=== PATIENT | male | born 1980 | race Caucasian/White ===

== ENCOUNTER 2017-11-02 18:32 | Observation (INO) | payer MEDICARE, OTHER ==
[~2017-11-02] VITALS: Ht 172.7 cm; Wt 80.9 kg
[~2017-11-02 18:32] MED LIST: CLIN150C14 PO; CLON2TAB PO; ELVI1TAB3 PO; FENO48TA PO; HYDR-3583 PO; LAMO150T PO; MIRT30TA PO; MOME17I EACH NARE; PRAV20TA2 PO; PROP10TA6 PO; QUET1TAB10 PO; QUET1TAB8 PO; RANI150C PO; SUMA50TA2 PO; VENL100T PO; WALKER WHEELS/F1 MIS
[2017-11-02 18:40] VITALS: BP 113/75; PULSE 85; RESP 16; TEMP 98.6; O2SAT 95
[2017-11-02] MEDS ORDERED: QUET1TAB7 PO (19:42)
[2017-11-02] MEDS ORDERED: LANTUS2P SQ (19:42)
[2017-11-02] MEDS ORDERED: NOVOINJ3 SQ (19:42)
[2017-11-02] MEDS ORDERED: GABA600T PO (19:42)
[2017-11-02] MEDS ORDERED: SODIUM CHLOR 0.9% 1000 ML INJ 1,000 ML IV SCH (19:44)
[2017-11-02] MEDS ORDERED: SODIUM CHLORIDE 0.9% FLUSH 10 ML FLUSH IV FLUSH PRN (19:45)
[2017-11-02] MEDS ORDERED: MORPHINE SULFATE 8 MG/ML INJ IV PUSH ONE (19:45)
[2017-11-02] MEDS ORDERED: ONDANSETRON ODT 4 MG TAB PO ONE (19:45)
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
[2017-11-02 20:06] LABS: AUTOMATED NEUTROPHIL # 4.6 TH/MM3 (1.8-7.7); BASOPHIL # 0.1 TH/MM3 (0-0.2); EOSINOPHIL # 0.1 TH/MM3 (0-0.4); EOSINOPHIL % 1.6 % (0.0-4.0); HEMATOCRIT 44.6 % (39.0-51.0); HEMOGLOBIN 15.9 GM/DL (13.0-17.0); LYMPH % 38.3 % (9.0-44.0); LYMPHOCYTE # 3.3 TH/MM3 (1.0-4.8); MEAN CELL VOLUME 94.5 FL (80.0-100.0); MEAN CORPUSCULAR HEMOGLOBIN 33.8 PG (27.0-34.0); MEAN CORPUSCULAR HGB CONC 35.7 % (32.0-36.0); MEAN PLATELET VOLUME 10.8 FL (7.0-11.0); MONO % 5.6 % (0.0-8.0); MONOCYTE # 0.5 TH/MM3 (0-0.9); NEUT % 53.5 % (16.0-70.0); PLATELET COUNT 176 TH/MM3 (150-450); RED BLOOD COUNT 4.72 MIL/MM3 (4.50-5.90); RED CELL DISTRIBUTION WIDTH 13.4 % (11.6-17.2); WHITE BLOOD COUNT 8.6 TH/MM3 (4.0-11.0)
[2017-11-02 20:28] LABS: ALBUMIN 3.5 GM/DL (3.4-5.0); AST (GOT) 82 U/L (15-37); BICARBONATE 25.6 MEQ/L (21.0-32.0); BLOOD UREA NITROGEN 12 MG/DL (7-18); CALCIUM 9.7 MG/DL (8.5-10.1); CHLORIDE 104 MEQ/L (98-107); CREATININE 0.96 MG/DL (0.60-1.30); GLOMERULAR FILTRATION RATE 89 ML/MIN (>89); GLUCOSE,RANDOM 92 MG/DL (74-106); SODIUM (NA) 140 MEQ/L (136-145)
[2017-11-02 20:29] LABS: ALT (GPT) 88 U/L (12-78)
[2017-11-02 20:32] LABS: ALKALINE PHOSPHATASE 187 U/L (45-117); TOTAL BILIRUBIN ADULT 0.4 MG/DL (0.2-1.0); TOTAL PROTEIN 7.9 GM/DL (6.4-8.2)
[2017-11-02] MEDS ORDERED: GLUCAGON 1 MG/ML VIAL OTHER PRN (21:45)
[2017-11-02] MEDS ORDERED: DEXTROSE 50% IN WATER 50 ML VIAL(D50) IV PUSH PRN (21:45)
[2017-11-02] MEDS ORDERED: LACTULOSE SYRUP 20 GM/30 ML CUP PO PRN (21:45)
[2017-11-02] MEDS ORDERED: SENNOSIDES 8.6 MG TAB PO PRN (21:45)
[2017-11-02] MEDS ORDERED: LORazepam 2 MG/ML VIAL IV PUSH PRN ×4 (21:45)
[2017-11-02] MEDS ORDERED: LORazepam 1 MG TAB PO PRN (21:45)
[2017-11-02] MEDS ORDERED: BISACODYL 10 MG SUPP RECTAL PRN (21:45)
[2017-11-02] MEDS ORDERED: LORazepam 2 MG TAB PO PRN (21:45)
[2017-11-02] MEDS ORDERED: PANTOPRAZOLE SODIUM 40 MG VIAL IV PUSH ONE (21:45)
[2017-11-02] MEDS ORDERED: MORPHINE SULFATE 2 MG/ML SYRINGE IV PUSH PRN (21:45)
[2017-11-02] MEDS ORDERED: HALOPERIDOL LACTATE 5 MG/ML AMP IM PRN (21:45)
[2017-11-02] MEDS ORDERED: ACETAMINOPHEN 325 MG TAB PO PRN (21:45)
[2017-11-02] MEDS ORDERED: MAGNESIUM HYDROXIDE SUSP 30 ML CUP PO PRN (21:45)
[2017-11-02] MEDS ORDERED: FLUMAZENIL 0.5 MG/5 ML VIAL IV PUSH PRN (21:45)
--- NOTE | 2017-11-02 21:45 | HHI.HP ---
[facility] No Primary Care Physician Admission Diagnosis Alcoholic Pancreatitis; Alcohol Intoxication Diagnoses: (1) Pancreatitis Diagnosis: Principal (2) Alcohol abuse Diagnosis: Principal (3) DM (diabetes mellitus) Diagnosis: Principal Travel History International Travel<30 Days: No Contact w/Intl Traveler <30 Da: No Traveled to Known Affected Are: No History of Present Illness This is a 37-year-old male with a PMH of Anxiety, Depression, HIV, DM, Recurrent Pancreatitis, Alcohol Abuse and Tobacco Abuse who presented to the ER with complaints of abdominal pain starting earlier today which he believes is related to recurrent pancreatitis. Patient does admit to drinking on a daily basis. Notes pain is generalized, constant, 9/10, nonradiating, associated with nausea and vomiting. Denies fever, chills or diarrhea. On arrival, BP 113 /75, HR 85, O2 sat 95% on RA, Afebrile. CBC unremarkable. Chemistry essentially unremarkable. LFTs elevated in comparison to previous labs. Lipase 658. S/p Zofran and Morphine 8mg IV in ER w/ minimal improvement, persistent nausea/vomiting and abdominal pain. Review of Systems Except as stated in HPI: all other systems reviewed are Neg ROS: 14 point review of systems otherwise negative. Past Family Social History Past Medical History PMH: Anxiety, Depression, HIV, DM, Recurrent Pancreatitis, Alcohol Abuse and Tobacco Abuse Past Surgical History PAST SURGICAL HISTORY: Appendectomy, Femur Vito Allergies: Coded Allergies: naproxen (Unverified Allergy, Severe, 02/05/17) penicillin G (Unverified Allergy, Severe, 02/05/17) Family History PAST FAMILY HISTORY: Reviewed. No h/o DM or CAD Social History PAST SOCIAL HISTORY: Drinks daily. Smokes 1/2ppd. Negative for drugs. Physical Exam Vital Signs Vital Signs Date Time Temp Pulse Resp B/P (MAP) Pulse Ox O2 Delivery O2 Flow Rate FiO2 11/02/17 19:48 Room Air 11/02/17 18:40 98.6 85 16 113/75 (88) 95 Physical Exam PE: GENERAL: Young white male in moderate distress due to pain, sitting up in bed, tearful. Mother at bedside. HEENT: PERRLA, EOMI. No scleral icterus or conjunctival pallor. No lid lag or facial droop. CARDIOVASCULAR: Regular rate and rhythm. No obvious murmurs to auscultation. No chest tenderness to palpation. RESPIRATORY: No obvious rhonchi or wheezing. Clear to auscultation. Breath sounds equal bilaterally. GASTROINTESTINAL: Abdomen soft, generalized tenderness palpation, nondistended. BS normal. MUSCULOSKELETAL: Extremities without clubbing, cyanosis, or edema. No obvious deformities. NEUROLOGICAL: Awake, alert and oriented x4. No focal neurologic deficits. Moving both upper and lower extremities spontaneously. Laboratory Laboratory Tests Test 11/02/17 19:54 White Blood Count 8.6 Red Blood Count 4.72 Hemoglobin 15.9 Hematocrit 44.6 Mean Corpuscular Volume 94.5 Mean Corpuscular Hemoglobin 33.8 Mean Corpuscular Hemoglobin Concent 35.7 Red Cell Distribution Width 13.4 Platelet Count 176 Mean Platelet Volume 10.8 Neutrophils (%) (Auto) 53.5 Lymphocytes (%) (Auto) 38.3 Monocytes (%) (Auto) 5.6 Eosinophils (%) (Auto) 1.6 Basophils (%) (Auto) 1.0 Neutrophils # (Auto) 4.6 Lymphocytes # (Auto) 3.3 Monocytes # (Auto) 0.5 Eosinophils # (Auto) 0.1 Basophils # (Auto) 0.1 CBC Comment DIFF FINAL Differential Comment Blood Urea Nitrogen 12 Creatinine 0.96 Random Glucose 92 Total Protein 7.9 Albumin 3.5 Calcium Level 9.7 Alkaline Phosphatase 187 Aspartate Amino Transf (AST/SGOT) 82 Alanine Aminotransferase (ALT/SGPT) 88 Total Bilirubin 0.4 Sodium Level 140 Potassium Level 3.4 Chloride Level 104 Carbon Dioxide Level 25.6 Anion Gap 10 Estimat Glomerular Filtration Rate 89 Lipase 658 Ethyl Alcohol Level 160 Result Diagram: 11/02/17195311/02/171953 Caprini VTE Risk Assessment Caprini VTE Risk Assessment: No/Low Risk (score <= 1) Caprini Risk Assessment Model Point Value = 1 Point Value = 2 Point Value = 3 Point Value = 5 Age 41-60 Minor surgery BMI > 25 kg/m2 Swollen legs Varicose veins or History of unexplained or recurrent spontaneous Oral contraceptives or hormone replacement Sepsis (< 1 month) Serious lung disease, including pneumonia (< 1 month) Abnormal pulmonary function Acute myocardial infarction Congestive heart failure (< 1 month) History of inflammatory bowel disease Medical patient at bed rest Age 61-74 Arthroscopic surgery Major open surgery (> 45 min) Laparoscopic surgery (> 45 min) Malignancy Confined to bed (> 72 hours) Immobilizing plaster cast Central venous access Age >= 75 History of VTE Family history of VTE Factor V Leiden Prothrombin [id number] Lupus anticoagulant Anticardiolipin antibodies Elevated serum homocysteine Heparin-induced thrombocytopenia Other congenital or acquired thrombophilia Stroke (< 1 month) Elective arthroplasty Hip, pelvis, or leg fracture Acute spinal cord injury (< 1 month) Prophylaxis Regimen Total Risk Factor Score Risk Level Prophylaxis Regimen 0-1 Low Early ambulation 2 Moderate Order ONE of the following: *Sequential Compression Device (SCD) *Heparin 5000 units SQ BID 3-4 Higher Order ONE of the following medications: *Heparin 5000 units SQ TID *Enoxaparin/Lovenox 40 mg SQ daily (WT < 150 kg, CrCl > 30 mL/min) *Enoxaparin/Lovenox 30 mg SQ daily (WT < 150 kg, CrCl > 10-29 mL/min) *Enoxaparin/Lovenox 30 mg SQ BID (WT < 150 kg, CrCl > 30 mL/min) AND/OR *Sequential Compression Device (SCD) 5 or more Highest Order ONE of the following medications: *Heparin 5000 units SQ TID (Preferred with Epidurals) *Enoxaparin/Lovenox 40 mg SQ daily (WT < 150 kg, CrCl > 30 mL/min) *Enoxaparin/Lovenox 30 mg SQ daily (WT < 150 kg, CrCl > 10-29 mL/min) *Enoxaparin/Lovenox 30 mg SQ BID (WT < 150 kg, CrCl > 30 mL/min) AND *Sequential Compression Device (SCD) Assessment and Plan Problem List: (1) Pancreatitis ICD Code: K85.90 - Acute pancreatitis without necrosis or infection, unspecified Status: Acute (2) Alcohol abuse ICD Code: F10.10 - Alcohol abuse, uncomplicated (3) DM (diabetes mellitus) ICD Code: E11.9 - Type 2 diabetes mellitus without complications Assessment and Plan A/P: 1. Pancreatitis: Alcohol-Induced, Recurrent. Lipase 698, persistent nausea/ vomiting and abdominal pain despite treatment in ER. Admit for Observation, NPO , IVF, Protonix IV x1 now then bid, analgesics/antiemetics as needed. Repeat labs in am. 2. Alcohol Abuse: Drinks daily, heavy, high risk for withdrawal. CIWA, Seizure Precautions, MVT/Thiamine/Folate replacement. Pt counselled on alcohol cessation. 3. DM: Sliding scale w/ Accu-Cheks, restart Insulin tomorrow once taking adequate PO 4. DVT Prophylaxis: SCD/Teds 5. Social work for d/c planning as needed. 6. Case discussed w/ ER physician at length, labs/records/imaging reviewed by me. Problem Qualifiers (1) Pancreatitis: Qualified Codes: K86.0 - Alcohol-induced chronic pancreatitis Lxami Diaz MD November 02, 2017 21:45
[2017-11-02] MEDS ORDERED: MORPHINE SULFATE 4 MG/ML INJ IV PUSH PRN (22:00)
[2017-11-02] MEDS ORDERED: PILL SPLITTER OTHER PRN (22:00)
[2017-11-02 22:40] VITALS: BP 130/77; PULSE 66; RESP 16; TEMP 98.3; O2SAT 98
[2017-11-02] MEDS: MIRTAZAPINE 15 MG TAB PO SCH (22:51)
[2017-11-02] MEDS: THIAMINE HCL 100 MG TAB PO SCH (22:51)
[2017-11-02] MEDS: SODIUM CHLOR 0.9% 1000 ML INJ 1,000 ML IV SCH (22:59)
[2017-11-02] MEDS ORDERED: VENL75CA44 PO (23:29)
[2017-11-02] MEDS ORDERED: HYDROmorphone HCL PF 0.5 MG/0.5 ML SYRINGE IV PUSH ONE (23:30)
[2017-11-03 00:27] VITALS: BP 147/63; PULSE 76; RESP 16; TEMP 98.5; O2SAT 98
[2017-11-03] MEDS: METOCLOPRAMIDE HCL 10 MG/2 ML VIAL IV PUSH PRN ×2 (01:53→08:18)
[2017-11-03] MEDS ORDERED: HYDROmorphone HCL PF 0.5 MG/0.5 ML SYRINGE IV PUSH PRN (04:00)
[2017-11-03 05:58] LABS: AUTOMATED NEUTROPHIL # 6.7 TH/MM3 (1.8-7.7); BASOPHIL % 0.4 % (0.0-2.0); EOSINOPHIL # 0.1 TH/MM3 (0-0.4); EOSINOPHIL % 0.7 % (0.0-4.0); HEMOGLOBIN 15.6 GM/DL (13.0-17.0); LYMPH % 19.8 % (9.0-44.0); LYMPHOCYTE # 1.8 TH/MM3 (1.0-4.8); MEAN CELL VOLUME 94.3 FL (80.0-100.0); MEAN CORPUSCULAR HEMOGLOBIN 33.3 PG (27.0-34.0); MEAN CORPUSCULAR HGB CONC 35.3 % (32.0-36.0); MEAN PLATELET VOLUME 10.5 FL (7.0-11.0); MONO % 5.7 % (0.0-8.0); MONOCYTE # 0.5 TH/MM3 (0-0.9); NEUT % 73.4 % (16.0-70.0); PLATELET COUNT 152 TH/MM3 (150-450); RED BLOOD COUNT 4.67 MIL/MM3 (4.50-5.90); RED CELL DISTRIBUTION WIDTH 13.2 % (11.6-17.2); WHITE BLOOD COUNT 9.1 TH/MM3 (4.0-11.0)
[2017-11-03 06:37] LABS: ALBUMIN 3.2 GM/DL (3.4-5.0); ALKALINE PHOSPHATASE 176 U/L (45-117); ALT (GPT) 74 U/L (12-78); AST (GOT) 58 U/L (15-37); BICARBONATE 24.3 MEQ/L (21.0-32.0); BLOOD UREA NITROGEN 14 MG/DL (7-18); CALCIUM 8.1 MG/DL (8.5-10.1); CHLORIDE 106 MEQ/L (98-107); CREATININE 0.85 MG/DL (0.60-1.30); GLOMERULAR FILTRATION RATE 102 ML/MIN (>89); GLUCOSE,RANDOM 121 MG/DL (74-106); SODIUM (NA) 141 MEQ/L (136-145); TOTAL BILIRUBIN ADULT 0.3 MG/DL (0.2-1.0); TOTAL PROTEIN 7.3 GM/DL (6.4-8.2)
--- NOTE | 2017-11-03 08:08 | HHI.PR ---
Subjective Remarks Follow-up recurrent pancreatitis November 03, 2017-patient seen and examined, complained of abdominal pain. Reports significant emesis and nausea. Resting stronger narcotics. Objective Vitals Vital Signs Date Time Temp Pulse Resp B/P (MAP) Pulse Ox O2 Delivery O2 Flow Rate FiO2 11/03/17 02:00 16 11/03/17 00:30 16 11/03/17 00:27 98.5 76 16 147/63 (91) 98 11/02/17 22:40 98.3 66 16 130/77 (94) 98 11/02/17 19:48 Room Air 11/02/17 18:40 98.6 85 16 113/75 (88) 95 I/O 11/02/17 11/02/17 11/02/17 11/03/17 11/03/17 11/03/17 07:00 15:00 23:00 07:00 15:00 23:00 Intake Total 1000 ml Balance 1000 ml Intake IV Total 1000 ml Result Diagram: 11/03/1728 11/03/17527 Objective Remarks GENERAL: NAD SKIN: Warm and dry. HEAD: Normocephalic. EYES: No scleral icterus. No injection or drainage. NECK: Supple, trachea midline. No JVD or lymphadenopathy. CARDIOVASCULAR: Regular rate and rhythm without murmurs, gallops, or rubs. RESPIRATORY: Breath sounds equal bilaterally. No accessory muscle use. GASTROINTESTINAL: Abdomen soft, mildly tender, nondistended. MUSCULOSKELETAL: No cyanosis, or edema. BACK: Nontender without obvious deformity. No CVA tenderness. A/P Problem List: (1) Pancreatitis ICD Code: K85.90 - Acute pancreatitis without necrosis or infection, unspecified Status: Acute (2) Alcohol abuse ICD Code: F10.10 - Alcohol abuse, uncomplicated (3) DM (diabetes mellitus) ICD Code: E11.9 - Type 2 diabetes mellitus without complications Assessment and Plan 37-year-old man with 1. Recurrent pancreatitis: Alcohol-Induced, Recurrent. Lipase 698 on admission. NPO, increase IV rate to 150cc/hr. Toradol as needed for pain 2. Alcohol Abuse: Continue CIWA, Seizure Precautions, MVT/Thiamine/Folate replacement. Pt counselled on alcohol cessation. 3. DM: Sliding scale w/ Accu-Cheks, restart Insulin once taking adequate PO 4. DVT Prophylaxis: SCD/Teds Problem Qualifiers (1) Pancreatitis: Qualified Codes: K86.0 - Alcohol-induced chronic pancreatitis Kevin Swenson MD November 03, 2017 08:08
[2017-11-03] MEDS ORDERED: KETOROLAC TROMETHAMINE 30 MG/ML (IVP) VIAL IV PUSH PRN (08:15)
[2017-11-03] MEDS: INSULIN ASPART SUPPLEMENTAL SCALE SQ SCH ×4 (08:16→19:49)
[2017-11-03] MEDS: SODIUM CHLORIDE 0.9% FLUSH 10 ML FLUSH IV FLUSH SCH ×2 (08:18→19:51)
[2017-11-03] MEDS: SODIUM CHLOR 0.9% 1000 ML INJ 1,000 ML IV SCH ×3 (08:18→23:22)
[2017-11-03] MEDS: FOLIC ACID 1 MG TAB PO SCH (08:19)
[2017-11-03] MEDS: QUEtiapine FUMARATE 25 MG TAB PO SCH ×2 (08:19→15:50)
[2017-11-03] MEDS: PANTOPRAZOLE SOD 40 MG DELAYED RELEASE TAB PO SCH ×2 (08:19→19:47)
[2017-11-03] MEDS: VENLAFAXINE HCL XR 75 MG CAP PO SCH (08:19)
[2017-11-03] MEDS: lamoTRIgine 100 MG TAB PO SCH ×2 (08:19→19:46)
[2017-11-03] MEDS: THIAMINE HCL 100 MG TAB PO SCH (08:19)
[2017-11-03] MEDS: MULTIVITAMINS/MINERALS THERAPEUTIC TAB PO SCH (08:19)
[2017-11-03] MEDS: DOCUSATE SODIUM 50 MG/SENNA 8.6 MG TAB PO SCH ×2 (08:19→19:48)
[2017-11-03 08:26] VITALS: BP 131/75; PULSE 64; RESP 18; TEMP 97.5; O2SAT 98
[2017-11-03] MEDS: [UNRECOGNIZED DRUG - OTHER] PO SCH (08:34)
[2017-11-03] MEDS ORDERED: [UNRECOGNIZED DRUG - OTHER] PO SCH (09:00)
[2017-11-03] MEDS ORDERED: VENLAFAXINE HCL XR 75 MG CAP PO SCH (09:00)
[2017-11-03] MEDS: KETOROLAC TROMETHAMINE 30 MG/ML (IVP) VIAL IV PUSH PRN ×3 (10:14→23:19)
[2017-11-03] MEDS: SODIUM CHLORIDE 0.9% FLUSH 10 ML FLUSH IV FLUSH PRN ×2 (10:14→17:00)
[2017-11-03 11:59] VITALS: BP 110/56; PULSE 45; RESP 18; TEMP 97.9; O2SAT 97
[2017-11-03] MEDS ORDERED: LIDOCAINE HCL 2% PF 10 ML VIAL ONE (15:02)
[2017-11-03 16:25] VITALS: BP 124/74; PULSE 65; RESP 18; TEMP 98.4; O2SAT 98
[2017-11-03] MEDS: MIRTAZAPINE 15 MG TAB PO SCH (19:47)
[2017-11-03 19:52] VITALS: BP 115/76; PULSE 89; RESP 17; TEMP 98.7; O2SAT 96
[2017-11-03] MEDS ORDERED: GABAPENTIN 300 MG CAP PO SCH (21:00)
[2017-11-03] MEDS ORDERED: INSULIN DETEMIR 100 UNITS/ML VIAL SQ SCH (21:00)
[2017-11-03] MEDS ORDERED: QUEtiapine FUMARATE 300 MG TAB PO SCH (21:00)
[2017-11-03 23:24] VITALS: BP 111/76; PULSE 56; RESP 16; O2SAT 98
[2017-11-04] MEDS: SODIUM CHLOR 0.9% 1000 ML INJ 1,000 ML IV SCH (04:12)
[2017-11-04 06:37] LABS: ALBUMIN 2.6 GM/DL (3.4-5.0); ALT (GPT) 50 U/L (12-78); AST (GOT) 37 U/L (15-37); BICARBONATE 26.8 MEQ/L (21.0-32.0); BLOOD UREA NITROGEN 9 MG/DL (7-18); CALCIUM 7.8 MG/DL (8.5-10.1); CHLORIDE 112 MEQ/L (98-107); GLOMERULAR FILTRATION RATE 95 ML/MIN (>89); GLUCOSE,RANDOM 72 MG/DL (74-106); SODIUM (NA) 145 MEQ/L (136-145)
[2017-11-04 07:01] LABS: ALKALINE PHOSPHATASE 163 U/L (45-117); TOTAL BILIRUBIN ADULT 0.4 MG/DL (0.2-1.0); TOTAL PROTEIN 6.4 GM/DL (6.4-8.2)
--- NOTE | 2017-11-04 07:30 | HHI.PR ---
Subjective Remarks Follow-up recurrent pancreatitis November 03, 2017-patient seen and examined, complained of abdominal pain. Reports significant emesis and nausea. Resting stronger narcotics. November 04, 2017-patient seen and examined, reports improvement of nausea and vomiting. Denies any abdominal pain. Was able to tolerate clear liquids yesterday Objective Vitals Vital Signs Date Time Temp Pulse Resp B/P (MAP) Pulse Ox O2 Delivery O2 Flow Rate FiO2 11/03/17 23:24 56 16 111/76 (88) 98 11/03/17 19:52 98.7 89 17 115/76 (89) 96 11/03/17 16:25 98.4 65 18 124/74 (91) 98 11/03/17 11:59 97.9 45 18 110/56 (74) 97 11/03/17 08:26 97.5 64 18 131/75 (93) 98 I/O 11/03/17 11/03/17 11/03/17 11/04/17 11/04/17 11/04/17 07:00 15:00 23:00 07:00 15:00 23:00 Intake Total 1000 ml Output Total 500 ml Balance 500 ml Intake IV Total 1000 ml Output Urine Total 500 ml # Voids 2 2 Result Diagram: 11/03/17 0528 11/04/17521 Objective Remarks GENERAL: NAD SKIN: Warm and dry. HEAD: Normocephalic. EYES: No scleral icterus. No injection or drainage. NECK: Supple, trachea midline. No JVD or lymphadenopathy. CARDIOVASCULAR: Regular rate and rhythm without murmurs, gallops, or rubs. RESPIRATORY: Breath sounds equal bilaterally. No accessory muscle use. GASTROINTESTINAL: Abdomen soft, non tender, nondistended. MUSCULOSKELETAL: No cyanosis, or edema. BACK: Nontender without obvious deformity. No CVA tenderness. Procedures none A/P Problem List: (1) Pancreatitis ICD Code: K85.90 - Acute pancreatitis without necrosis or infection, unspecified Status: Resolved (2) Alcohol abuse ICD Code: F10.10 - Alcohol abuse, uncomplicated Status: Chronic (3) DM (diabetes mellitus) ICD Code: E11.9 - Type 2 diabetes mellitus without complications Assessment and Plan 37-year-old man with 1. Recurrent pancreatitis: Alcohol-Induced, Recurrent.Resolved. Lipase 698 on admission however now resolved. ADAT, HLIV . Toradol as needed for pain 2. Alcohol Abuse: Continue CIWA, Seizure Precautions, MVT/Thiamine/Folate replacement. Librium protocol. Pt counselled on alcohol cessation. 3. DM: Sliding scale w/ Accu-Cheks, Continue Insulin 4. DVT Prophylaxis: SCD/Teds Problem Qualifiers (1) Pancreatitis: Qualified Codes: K86.0 - Alcohol-induced chronic pancreatitis Kevin Swesnon MD November 04, 2017 07:30
--- NOTE | 2017-11-04 07:33 | HHI.DS ---
Discharge Summary Admission Date November 02, 2017 at 21:36 Discharge Date: November 04, 2017 Admitting Diagnosis Alcoholic Pancreatitis; Alcohol Intoxication (1) Pancreatitis ICD Code: K85.90 - Acute pancreatitis without necrosis or infection, unspecified Status: Resolved (2) Alcohol abuse ICD Code: F10.10 - Alcohol abuse, uncomplicated Status: Chronic (3) DM (diabetes mellitus) ICD Code: E11.9 - Type 2 diabetes mellitus without complications Procedures none Brief History - From Admission This is a 37-year-old male with a PMH of Anxiety, Depression, HIV, DM, Recurrent Pancreatitis, Alcohol Abuse and Tobacco Abuse who presented to the ER with complaints of abdominal pain starting earlier today which he believes is related to recurrent pancreatitis. Patient does admit to drinking on a daily basis. Notes pain is generalized, constant, 9/10, nonradiating, associated with nausea and vomiting. Denies fever, chills or diarrhea. On arrival, BP 113 /75, HR 85, O2 sat 95% on RA, Afebrile. CBC unremarkable. Chemistry essentially unremarkable. LFTs elevated in comparison to previous labs. Lipase 658. S/p Zofran and Morphine 8mg IV in ER w/ minimal improvement, persistent nausea/vomiting and abdominal pain. CBC/BMP: 11/03/17 0528 11/04/17 0522 Significant Findings Laboratory Tests Test 11/02/17 19:54 11/03/17 05:28 11/04/17 05:22 Alkaline Phosphatase 187 U/L (45-117) 176 U/L (45-117) 163 U/L (45-117) Aspartate Amino Transf (AST/SGOT) 82 U/L (15-37) 58 U/L (15-37) Alanine Aminotransferase (ALT/SGPT) 88 U/L (12-78) Potassium Level 3.4 MEQ/L (3.5-5.1) 3.0 MEQ/L (3.5-5.1) Lipase 658 U/L (73-393) 849 U/L (73-393) Ethyl Alcohol Level 160 MG/DL (0-5) Neutrophils (%) (Auto) 73.4 % (16.0-70.0) Random Glucose 121 MG/DL (74-106) 72 MG/DL (74-106) Albumin 3.2 GM/DL (3.4-5.0) 2.6 GM/DL (3.4-5.0) Calcium Level 8.1 MG/DL (8.5-10.1) 7.8 MG/DL (8.5-10.1) Chloride Level 112 MEQ/L (98-107) PE at Discharge GENERAL: NAD SKIN: Warm and dry. HEAD: Normocephalic. EYES: No scleral icterus. No injection or drainage. NECK: Supple, trachea midline. No JVD or lymphadenopathy. CARDIOVASCULAR: Regular rate and rhythm without murmurs, gallops, or rubs. RESPIRATORY: Breath sounds equal bilaterally. No accessory muscle use. GASTROINTESTINAL: Abdomen soft, non tender, nondistended. MUSCULOSKELETAL: No cyanosis, or edema. BACK: Nontender without obvious deformity. No CVA tenderness. Hospital Course While in hospital, patient was treated for: 1. Recurrent pancreatitis: Alcohol-Induced, Recurrent. Lipase 698 on admission however and patient was kept n.p.o with IV fluid hydration and provided Toradol for pain as needed. His diet was advanced accordingly which he tolerated prior to discharge 2. Alcohol Abuse: Continue CIWA, Seizure Precautions, MVT/Thiamine/Folate replacement. Librium protocol. Pt counselled on alcohol cessation. 3. DM: He was started on sliding scale w/ Accu-Cheks, Insulin was subsequently resumed after patient tolerated p.o. 4. DVT Prophylaxis: SCD/Teds Pt Condition on Discharge: Good Discharge Disposition: Discharge Home Discharge Time: <= 30 minutes Discharge Instructions DIET: Follow Instructions for: Diabetic Diet Activities you can perform: Regular-No Restrictions Kevin Swenson MD November 04, 2017 07:33
[2017-11-04 07:38] VITALS: BP 107/66; PULSE 63; RESP 16; TEMP 97.8; O2SAT 97
[2017-11-04] MEDS ORDERED: PANT40TA3 PO (07:47)
[2017-11-04] MEDS ORDERED: THERM PO (07:47)
[2017-11-04] MEDS ORDERED: FOLI1TAB6 PO (07:47)
[2017-11-04] MEDS ORDERED: THIA100 PO (07:47)
--- NOTE | 2017-11-04 07:48 | HHI.DCPOC ---
Discharge Care Plan Diagnosis: (1) Pancreatitis (2) DM (diabetes mellitus) (3) Alcohol intoxication Your Health Problems Are: Inflammation Irregular Bowel Function Fluctuating Blood Sugars Goals to Promote Your Health * To prevent worsening of your condition and complications * To maintain your health at the optimal level Directions to Meet Your Goals Take your medications as prescribed Follow your dietary instruction Follow activity as directed Keep your appointments as scheduled Take your immunizations and boosters as scheduled If your symptoms worsen call your PCP, if no PCP go to Urgent Care Center or Emergency Room Smoking is Dangerous to Your Health. Avoid second hand smoke Call the 24-hour hour crisis hotline for domestic abuse at Humberto Hernandez November 04, 2017 07:48
[2017-11-04] MEDS: INSULIN ASPART SUPPLEMENTAL SCALE SQ SCH (08:00)
[2017-11-04] MEDS: FOLIC ACID 1 MG TAB PO SCH (08:24)
[2017-11-04] MEDS: SODIUM CHLORIDE 0.9% FLUSH 10 ML FLUSH IV FLUSH SCH (08:24)
[2017-11-04] MEDS: [UNRECOGNIZED DRUG - OTHER] PO SCH (08:24)
[2017-11-04] MEDS: PANTOPRAZOLE SOD 40 MG DELAYED RELEASE TAB PO SCH (08:24)
[2017-11-04] MEDS: THIAMINE HCL 100 MG TAB PO SCH (08:25)
[2017-11-04] MEDS: DOCUSATE SODIUM 50 MG/SENNA 8.6 MG TAB PO SCH (08:26)
[2017-11-04] MEDS: MULTIVITAMINS/MINERALS THERAPEUTIC TAB PO SCH (08:26)
[2017-11-04] MEDS: lamoTRIgine 100 MG TAB PO SCH (08:26)
[2017-11-04] MEDS: VENLAFAXINE HCL XR 75 MG CAP PO SCH (08:28)
[2017-11-04] MEDS: QUEtiapine FUMARATE 25 MG TAB PO SCH (08:38)
[2017-11-04] MEDS ORDERED: PRAVASTATIN SOD 20 MG TAB PO SCH (21:00)
== END 2017-11-04 12:34 | disposition home or self-care (01) ==
LOC: NEPE 18:32 → NEDA 21:36 → NEPFCDU 22:32
PROVIDERS: ADMIT Hospitalist; ATTEND Hospitalist
DX: K86.0 Alcohol-induced chronic pancreatitis (principal); F10.229 Alcohol dependence with intoxication, unspecified; E11.9 Type 2 diabetes mellitus without complications; B20 Human immunodeficiency virus [HIV] disease; R79.89 Other specified abnormal findings of blood chemistry; F41.9 Anxiety disorder, unspecified; F32.9 Major depressive disorder, single episode, unspecified; F17.200 Nicotine dependence, unspecified, uncomplicated; Z79.899 Other long term (current) drug therapy
CPT/HCPCS: 80053; 80307; 82948; 83690; 85025; 96361; 96372; 96374; 96375; 96376; 99285; C9113; G0378; J1170; J1885; J2060; J2270; J2765; J7030

== ENCOUNTER 2018-01-12 17:58 | Inpatient (IN) ==
--- NOTE | 2018-01-12 19:05 | ED ---
HPI General Chief complaint: Respiratory Symptoms Stated complaint: left leg swelling(sent by primary)/sob Time Seen by Provider: 01/12/18 18:44 Source: patient Mode of arrival: ambulatory Limitations: no limitations History of Present Illness HPI narrative: 37yo M with PMH of anxiety, depression, HIV, DM, recurrent pancreatitis, alcohol abuse presents to the ED with multiple complaints. Said for the last few days, he has been having chest pain, sob. He points to the epigastric abdominal region but said it radiates up to chest. Also said he has right lower extremity edema for 2 weeks. Said edema is better with elevation. +Nausea and vomiting. Denies any fever, dysuria, hematuria, focal weakness. Pt has neuropathy and takes gabapentin. Pt was admitted in 10/2017 for acute pancreatitis. Related Data Home Medications Medication Instructions Recorded Confirmed acetaminophen-codeine 1 tab PO Q6H PRN 01/12/18 01/12/18 [Tylenol-Codeine #3] brexpiprazole [Rexulti] 1 mg PO DAILY 01/12/18 01/12/18 futniaq-pxy-farwt-tenof alafen 1 tab PO DAILY 01/12/18 01/12/18 [Genvoya] escitalopram oxalate 10 mg PO DAILY 01/12/18 01/12/18 gabapentin 1 tab PO Q6HR 01/12/18 01/12/18 lamotrigine 300 mg PO DAILY 01/12/18 01/12/18 mirtazapine 30 mg PO DAILY 01/12/18 01/12/18 pantoprazole 40 mg PO DAILY 01/12/18 01/12/18 propranolol 10 mg PO TID 01/12/18 01/12/18 quetiapine 50 mg PO BID 01/12/18 01/12/18 quetiapine 300 mg PO HS 01/12/18 01/12/18 rosuvastatin 10 mg PO DAILY 01/12/18 01/12/18 sumatriptan succinate 50 mg PO Q2-4H PRN 01/12/18 01/12/18 Allergies Allergy/AdvReac Type Severity Reaction Status Date / Time naproxen Allergy Severe Vomiting Verified 01/12/18 18:18 penicillin G Allergy Severe Anaphylaxis Verified 01/12/18 18:18 Review of Systems ROS Unobtainable All other systems reviewed negative except as stated in HPI PMFSH Medical History Medical History Anxiety (Acute) Bipolar 1 disorder (Acute) Depression (Acute) Diabetes mellitus (Acute) HIV (human immunodeficiency virus infection) (Acute) High cholesterol (Acute) History of alcohol abuse (Acute) Insomnia (Acute) Pancreatitis (Acute) Schizophrenia (Acute) Tachycardia (Acute) Surgical History Surgical History History of appendectomy (Acute) Hx of tracheostomy (Acute) Social History Social History Substance History: No History of Abuse Smoking Status: Former smoker How Often Do You Have a Drink Containing Alcohol: Never Recent Travel in [facility] within the Last 8 Weeks: No Recent Out of Country Travel within the Last 8 Weeks: No Immunization History Tetanus Immunization: Unsure Hx Influenza Vaccine This Season: Yes Exam Narrative Exam Narrative: GENERAL: 37yo M in mild distress. SKIN: Focused skin assessment warm/dry. HEAD: Atraumatic. Normocephalic. EYES: Pupils equal and round. No scleral icterus. No injection or drainage. ENT: No nasal bleeding or discharge. Mucous membranes pink and moist. NECK: Trachea midline. No JVD. CARDIOVASCULAR: Regular rate and rhythm. No murmur appreciated. RESPIRATORY: + accessory muscle use. Crackles in bilateral lower lungs. O2 sat 88-90% on RA. GASTROINTESTINAL: Abdomen soft, +TTP epigastric region. No rebound tenderness or guarding. MUSCULOSKELETAL: No obvious deformities. No clubbing. No cyanosis. +Bilateral lower extremity edema. No erythema. NEUROLOGICAL: Awake and alert. No obvious cranial nerve deficits. Motor grossly within normal limits. Normal speech. PSYCHIATRIC: Appropriate mood and affect; insight and judgment normal. Course Initial Documented Vital Signs Temperature 99.0 F 01/12/18 18:20 Pulse Rate 80 01/12/18 18:20 Respiratory Rate 18 01/12/18 18:20 Blood Pressure 113/63 01/12/18 18:20 Pulse Oximetry 94 L 01/12/18 18:20 Last Documented Vital Signs Temperature 97.2 F L 01/13/18 08:00 Pulse Rate 77 01/13/18 08:00 Respiratory Rate 21 01/13/18 08:00 Blood Pressure 94/59 L 01/13/18 04:00 Pulse Oximetry 94 L 01/13/18 14:45 Critical Care Time Critical Care Time: Yes Total Critical Care Time: 40 Attestation: Aggregate critical care time was 40 minutes. Time to perform other separately billable procedures was not included in the critical care time. My time did not include minutes spent treating any other patients simultaneously or on activities that did not directly contribute to the patient's treatment. The services I provided to this patient were to treat and/or prevent clinically significant deterioration that could result in: cardiovascular collapse or . I provided critical care services requiring my management, as noted below: Chart data review, documentation time, medication orders and management, vital sign assessments/reviewing monitor data, ordering and reviewing lab tests, ordering and interpreting/reviewing x-rays and diagnostic studies, care of the patient and discussion of the patient with the admitting physicians. Medical Decision Making MDM Narrative Medical decision making narrative: 37yo M with HIV (VL undetectable as per patient), DM, alcohol abuse here with c/o chest pain and sob. On exam, pt is very tender in epigastric abdominal region as well. Pt is hypoxic ranging from 87-89% on RA. Said he does not use oxygen at home. Pt complains of right leg swelling but on exam both legs are mildly edematous. Labs reviewed, no leukocytosis. H/H 13.2/38.5. Mild thrombocytopenia. Lipase is low at 32. Magnesium normal. AST elevated at 129. BNP normal. Troponin negative. US showed no DVT in bilateral legs. CXR showed a nonconsolidative infiltrate lower lateral left lung. Given pt's hypoxemia, will do CTA to r/o PE. CTA showed no PE. Bilateral dependent lung atelectasis or nonconsolidative infiltrates. ABG showed O2 sat 82% on RA. pO2 48. Will cover him with broad spectrum antibiotics. CT a/p showed no acute findings in abdomen/pelvis. Discussed with Dr. Lagunas and accepted to her service. Differential Diagnosis Differential Diagnosis: Acute on chronic pancreatitis vs. CHF vs. pneumonia vs. PE vs. DVT Lab Data Result diagrams: 01/13/18 06:00 01/13/18 06:00 Lab Results 01/12/18 01/12/18 01/12/18 Range/Units 19:20 19:20 19:20 CBC w Diff Auto diff final WBC 7.3 (4.0-11.0) th/mm3 RBC 4.02 L (4.50-5.90) mil/mm3 Hgb 13.2 (13.0-17.0) gm/dL Hct 38.5 L (39.0-51.0) % MCV 95.8 (80.0-100.0) fL MCH 32.9 (27.0-34.0) pg MCHC 34.4 (32.0-36.0) % RDW 11.7 (11.6-17.2) % Plt Count 148 L (150-450) th/mm3 MPV 10.6 (7.0-11.0) fL Neut % (Auto) 58.2 (16.0-70.0) % Lymph % (Auto) 31.6 (9.0-44.0) % [place] % (Auto) 6.6 (0.0-8.0) % Eos % (Auto) 2.7 (0.0-4.0) % Baso % (Auto) 0.9 (0.0-2.0) % Neut # (Auto) 4.2 (1.8-7.7) th/mm3 Lymph # (Auto) 2.3 (1.0-4.8) th/mm3 [place] # (Auto) 0.5 (0.0-0.9) th/mm3 Eos # (Auto) 0.2 (0.0-0.4) th/mm3 Baso # (Auto) 0.1 (0.0-0.2) th/mm3 WBC Differential . Diff Scan Differential Comment . PT 10.1 (9.8-11.6) sec INR 1.0 Ratio APTT 25.3 (24.3-30.1) sec Puncture Site Patient Temperature O2 Saturation (90-100) % ABG pH (7.380-7.420) ABG pCO2 (38-42) mmHg ABG pO2 (61-120) mmHg ABG HCO3 (22-26) mmol/L ABG O2 Content (12.0-20.0) Vol % ABG Base Excess (-2-2) mmol/L ABG Methemoglobin (0-2) % Farrukh Test Hemoglobin (12.0-16.0) G/DL Carboxyhemoglobin (0-4) % O2 Delivery Device Liter Flow L/M Inspired O2 % Critical Value Sodium 136 (136-145) meq/L Potassium 3.7 (3.5-5.1) meq/L Chloride 103 (98-107) meq/L Carbon Dioxide 28.9 (21.0-32.0) meq/L Anion Gap 4 L (5-15) meq/L BUN 14 (7-18) mg/dL Creatinine 1.10 (0.60-1.30) mg/dL Estimated GFR 76 L (>89) mL/min POC Glucose (68-110) mg/dl Random Glucose 102 (74-106) mg/dL Calcium 8.4 L (8.5-10.1) mg/dL Magnesium 2.2 (1.5-2.5) mg/dL Total Bilirubin 0.5 (0.2-1.0) mg/dL AST 129 H (15-37) U/L ALT 63 (12-78) U/L Alkaline Phosphatase 118 H (45-117) U/L Troponin I Less than 0.02 L (0.02-0.05) ng/mL B-Natriuretic Peptide (0-100) pg/mL Total Protein 7.5 (6.4-8.2) g/dL Albumin 3.6 (3.4-5.0) g/dL Lipase 32 L (73-393) U/L 01/12/18 01/12/18 01/12/18 Range/Units 19:20 19:49 21:26 CBC w Diff WBC (4.0-11.0) th/mm3 RBC (4.50-5.90) mil/mm3 Hgb (13.0-17.0) gm/dL Hct (39.0-51.0) % MCV (80.0-100.0) fL MCH (27.0-34.0) pg MCHC (32.0-36.0) % RDW (11.6-17.2) % Plt Count (150-450) th/mm3 MPV (7.0-11.0) fL Neut % (Auto) (16.0-70.0) % Lymph % (Auto) (9.0-44.0) % [place] % (Auto) (0.0-8.0) % Eos % (Auto) (0.0-4.0) % Baso % (Auto) (0.0-2.0) % Neut # (Auto) (1.8-7.7) th/mm3 Lymph # (Auto) (1.0-4.8) th/mm3 [place] # (Auto) (0.0-0.9) th/mm3 Eos # (Auto) (0.0-0.4) th/mm3 Baso # (Auto) (0.0-0.2) th/mm3 WBC Differential Diff Scan Differential Comment PT (9.8-11.6) sec INR Ratio APTT (24.3-30.1) sec Puncture Site Right radial Left radial Patient Temperature 98.6 98.6 O2 Saturation 82 L* 94 (90-100) % ABG pH 7.39 7.41 (7.380-7.420) ABG pCO2 47 H 44 H (38-42) mmHg ABG pO2 48 L* 83 (61-120) mmHg ABG HCO3 28 H 27 H (22-26) mmol/L ABG O2 Content 14.9 17.3 (12.0-20.0) Vol % ABG Base Excess 3.4 H 3.2 H (-2-2) mmol/L ABG Methemoglobin 1.4 1.3 (0-2) % Farrukh Test Y Y Hemoglobin 13.0 13.0 (12.0-16.0) G/DL Carboxyhemoglobin 1.7 1.7 (0-4) % O2 Delivery Device Nasal cannula Liter Flow 3.00 L/M Inspired O2 21 21 % Critical Value Yes No Sodium (136-145) meq/L Potassium (3.5-5.1) meq/L Chloride (98-107) meq/L Carbon Dioxide (21.0-32.0) meq/L Anion Gap (5-15) meq/L BUN (7-18) mg/dL Creatinine (0.60-1.30) mg/dL Estimated GFR (>89) mL/min POC Glucose (68-110) mg/dl Random Glucose (74-106) mg/dL Calcium (8.5-10.1) mg/dL Magnesium (1.5-2.5) mg/dL Total Bilirubin (0.2-1.0) mg/dL AST (15-37) U/L ALT (12-78) U/L Alkaline Phosphatase (45-117) U/L Troponin I (0.02-0.05) ng/mL B-Natriuretic Peptide 6 (0-100) pg/mL Total Protein (6.4-8.2) g/dL Albumin (3.4-5.0) g/dL Lipase (73-393) U/L 01/13/18 01/13/18 01/13/18 Range/Units 06:00 06:00 09:58 CBC w Diff Slide review pending WBC 6.0 (4.0-11.0) th/mm3 RBC 4.24 L (4.50-5.90) mil/mm3 Hgb 13.8 (13.0-17.0) gm/dL Hct 40.0 (39.0-51.0) % MCV 94.3 (80.0-100.0) fL MCH 32.6 (27.0-34.0) pg MCHC 34.5 (32.0-36.0) % RDW 12.3 (11.6-17.2) % Plt Count 150 (150-450) th/mm3 MPV 10.3 (7.0-11.0) fL Neut % (Auto) 56.2 (16.0-70.0) % Lymph % (Auto) 31.9 (9.0-44.0) % [place] % (Auto) 8.5 H (0.0-8.0) % Eos % (Auto) 2.7 (0.0-4.0) % Baso % (Auto) 0.7 (0.0-2.0) % Neut # (Auto) 3.4 (1.8-7.7) th/mm3 Lymph # (Auto) 1.9 (1.0-4.8) th/mm3 [place] # (Auto) 0.5 (0.0-0.9) th/mm3 Eos # (Auto) 0.2 (0.0-0.4) th/mm3 Baso # (Auto) 0.0 (0.0-0.2) th/mm3 WBC Differential . Diff Scan Auto diff confirmed Differential Comment . PT (9.8-11.6) sec INR Ratio APTT (24.3-30.1) sec Puncture Site Patient Temperature O2 Saturation (90-100) % ABG pH (7.380-7.420) ABG pCO2 (38-42) mmHg ABG pO2 (61-120) mmHg ABG HCO3 (22-26) mmol/L ABG O2 Content (12.0-20.0) Vol % ABG Base Excess (-2-2) mmol/L ABG Methemoglobin (0-2) % Farrukh Test Hemoglobin (12.0-16.0) G/DL Carboxyhemoglobin (0-4) % O2 Delivery Device Liter Flow L/M Inspired O2 % Critical Value Sodium 140 (136-145) meq/L Potassium 4.0 (3.5-5.1) meq/L Chloride 106 (98-107) meq/L Carbon Dioxide 29.3 (21.0-32.0) meq/L Anion Gap 5 (5-15) meq/L BUN 13 (7-18) mg/dL Creatinine 1.10 (0.60-1.30) mg/dL Estimated GFR 76 L (>89) mL/min POC Glucose 156 H (68-110) mg/dl Random Glucose 124 H (74-106) mg/dL Calcium 8.7 (8.5-10.1) mg/dL Magnesium (1.5-2.5) mg/dL Total Bilirubin (0.2-1.0) mg/dL AST (15-37) U/L ALT (12-78) U/L Alkaline Phosphatase (45-117) U/L Troponin I (0.02-0.05) ng/mL B-Natriuretic Peptide (0-100) pg/mL Total Protein (6.4-8.2) g/dL Albumin (3.4-5.0) g/dL Lipase (73-393) U/L Imaging Data Radiologist's impression: Venous Doppler Study 01/12/18 18:56 CONCLUSION: 1. The study is negative for bilateral lower extremity deep venous thrombosis. Chest X-Ray 01/12/18 18:59 CONCLUSION: Findings suggest a nonconsolidative infiltrate lower lateral left lung. Recommend follow-up films to radiographic resolution. Chest CTA 01/12/18 19:41 CONCLUSION: 1. Study is negative for pulmonary embolism. 2. Bilateral dependent lung atelectasis or nonconsolidative infiltrates. Abdomen/Pelvis CT 01/12/18 19:43 CONCLUSION: 1. No acute findings in the abdomen/pelvis. ECG Data EKG Prior to Arrival: No Attestation: I personally reviewed and interpreted this ECG as follows: Interpretation: NSR 74bpm. LAD. ST depression V3. TWI III, V2. No significant ST elevation. No prior to compare. Discharge Plan Discharge Disposition Patient Disposition: 30 Still Patient Physicians Team ED Provider: Katerine Hu Primary Care Provider: Jay Stewart Attending Provider: Collin Whyte Status ED Status: Left Department Discharge Information Discharge Date/Time: 01/12/18 22:31
--- NOTE | 2018-01-12 19:19 | US ---
EXAM DATE: 01/12/2018 7:16 PM EDT AGE/SEX: 37 years / Male INDICATIONS: Lower extremity swelling. Shortness of breath and chest pain. CLINICAL DATA: This is the patient's initial encounter. Patient reports that signs and symptoms have been present for 3 days and indicates a pain score of 6/10. MEDICAL/SURGICAL HISTORY: . Diabetic. HIV. Pancreatitis. ETOH. Neuropathy. Appendectomy. Tonsillectomy. COMPARISON: No prior exams available for comparison. TECHNIQUE: Venous ultrasound of both lower extremities was performed from the inguinal ligament to t he proximal calf. Real-time, color Doppler and spectral tracing, compression and augmentation techni ques were used. FINDINGS: Right Leg: Normal compression of the deep venous system from the inguinal region to the proximal ron f. No echogenic clot is seen. Normal response of the venous system to augmentation and respiration. Left Leg: Normal compression of the deep venous system from the inguinal region to the proximal calf . No echogenic clot is seen. Normal response of the venous system to augmentation and respiration. Other: None. CONCLUSION: 1. The study is negative for bilateral lower extremity deep venous thrombosis. Electronically signed by: Hebert Little MD 01/12/2018 7:17 PM EDT
--- NOTE | 2018-01-12 19:21 | XR ---
EXAM DATE: 01/12/2018 7:18 PM EDT AGE/SEX: 37 years / Male INDICATIONS: Shortness of breath. CLINICAL DATA: This is the patient's initial encounter. Patient reports that signs and symptoms have been present for 2 days and indicates a pain score of 0/10. MEDICAL/SURGICAL HISTORY: HIV. Diabetes. None. COMPARISON: [facility] [place], 06/[place]/2016. . FINDINGS: The lungs are symmetrically aerated. Asymmetric opacity laterally in the left lower lung without cons olidation and without loss of delineation of left hemidiaphragm suggests a developing infiltrate. The right lung is clear. Heart size is normal. Incidental note of azygous lobe. Osseous structures are g rossly intact. CONCLUSION: Findings suggest a nonconsolidative infiltrate lower lateral left lung. Recommend follow-up films to radiographic resolution. Electronically signed by: Hebert Little MD 01/12/2018 7:20 PM EDT
[2018-01-12 19:27] LABS: Baso # (Auto) 0.1 th/mm3 (0.0-0.2); Baso % (Auto) 0.9 % (0.0-2.0); Eos # (Auto) 0.2 th/mm3 (0.0-0.4); Eos % (Auto) 2.7 % (0.0-4.0); Hematocrit 38.5 % (39.0-51.0); Hemoglobin 13.2 gm/dL (13.0-17.0); Lymph # (Auto) 2.3 th/mm3 (1.0-4.8); Lymph % (Auto) 31.6 % (9.0-44.0); Mean Corpuscular HGB Conc 34.4 % (32.0-36.0); Mean Corpuscular Hemoglobin 32.9 pg (27.0-34.0); Mean Corpuscular Volume 95.8 fL (80.0-100.0); Mean Platelet Volume 10.6 fL (7.0-11.0); Mono # (Auto) 0.5 th/mm3 (0.0-0.9); Mono % (Auto) 6.6 % (0.0-8.0); Neut # (Auto) 4.2 th/mm3 (1.8-7.7); Neut % (Auto) 58.2 % (16.0-70.0); Platelet Count 148 th/mm3 (150-450); Red Blood Count 4.02 mil/mm3 (4.50-5.90); Red Cell Distribution Width 11.7 % (11.6-17.2); White Blood Count 7.3 th/mm3 (4.0-11.0)
[2018-01-12 19:33] LABS: Chloride 103 meq/L (98-107); Potassium 3.7 meq/L (3.5-5.1); Sodium 136 meq/L (136-145)
[2018-01-12 19:37] LABS: Albumin 3.6 g/dL (3.4-5.0); Anion Gap 4 meq/L (5-15); Calcium 8.4 mg/dL (8.5-10.1); Carbon Dioxide 28.9 meq/L (21.0-32.0); Glucose,Random 102 mg/dL (74-106); Lipase 32 U/L (73-393); Magnesium 2.2 mg/dL (1.5-2.5)
[2018-01-12 19:38] LABS: Blood Urea Nitrogen 14 mg/dL (7-18)
[2018-01-12 19:39] LABS: Activated Partial Thrombo Time 25.3 sec (24.3-30.1); Prothrombin Time 10.1 sec (9.8-11.6)
[2018-01-12 19:40] LABS: Alanine Aminotransferase 63 U/L (12-78); Aspartate Aminotransferase 129 U/L (15-37)
[2018-01-12 19:41] LABS: Glomerular Filtration Rate 76 mL/min (>89)
[2018-01-12 19:42] LABS: Total Protein 7.5 g/dL (6.4-8.2)
[2018-01-12 19:43] LABS: Alkaline Phosphatase 118 U/L (45-117)
[2018-01-12 20:02] LABS: ABG Base Excess 3.4 mmol/L (-2-2); ABG PCO2 47 mmHg (38-42); ABG PO2 48 mmHg (61-120)
--- NOTE | 2018-01-12 20:50 | CT ---
EXAM DATE: 01/12/2018 8:43 PM EDT AGE/SEX: 37 years / Male INDICATIONS: Left leg swelling, shortness of breath. CLINICAL DATA: This is the patient's initial encounter. Patient reports that signs and symptoms have been present for 1 day and indicates a pain score of 5/10. MEDICAL/SURGICAL HISTORY: . Anxiety, bipolar disorder, diabetes, pancreatitis, high cholesterol, HI V, tachycardia. Appendectomy. Tracheotomy. RADIATION DOSE: 20.04 CTDI (mGy) ; Combined studies COMPARISON: No prior exams available for comparison. TECHNIQUE: Volumetric scanning was performed using a multi-row detector CT scanner during bolus infu tash of 98 ml Omnipaque 350 (iohexol) nonionic water-soluble contrast as a cumulative dose for multi ple exams. The data was post processed with a variety of visualization algorithms including full volu me maximum intensity projection and sliding thin slab reformation. Using automated exposure control a nd adjustment of the mA and/or kV according to patient size, radiation dose was kept as low as reason ably achievable to obtain optimal diagnostic quality images. DICOM format image data is available el ectronically for review and comparison. FINDINGS: Pulmonary Arteries: No filling defects are seen in the pulmonary arteries out to the subsegmental ve ssels. The left and right pulmonary arteries are normal in diameter. Lung: Patchy areas of atelectasis or consolidative infiltrate in the dependent lungs bilaterally. In cidental note of azygous lobe. Effusion: None. Mediastinum: No evidence of mediastinal or hilar adenopathy. Other: The axilla is unremarkable. CONCLUSION: 1. Study is negative for pulmonary embolism. 2. Bilateral dependent lung atelectasis or nonconsolidative infiltrates. Electronically signed by: Hebert Little MD 01/12/2018 8:49 PM EDT
[2018-01-12] MEDS ORDERED: Vancomycin Inj 1 GM/200 ML PIGGYBACK IV.SIG ONE (21:01)
[2018-01-12] MEDS ORDERED: Morphine Sulfate Inj 2 MG/ML Vial IV.PUSH ONE (21:01)
--- NOTE | 2018-01-12 21:02 | CT ---
EXAM DATE: 01/12/2018 8:43 PM EDT AGE/SEX: 37 years / Male INDICATIONS: Left leg swelling, shortness of breath. CLINICAL DATA: This is the patient's initial encounter. Patient reports that signs and symptoms have been present for 1 day and indicates a pain score of 5/10. MEDICAL/SURGICAL HISTORY: . Anxiety, bipolar disorder, diabetes, pancreatitis, high cholesterol , HIV, tachycardia. Appendectomy. Tracheotomy. ORAL CONTRAST: No oral contrast ingested. RADIATION DOSE: 20.04 CTDI (mGy) ; Combined studies COMPARISON: No prior exams available for comparison. TECHNIQUE: Multiple contiguous axial images were obtained through the abdomen and pelvis following b olus infusion of 98 ml Omnipaque 350 (iohexol) nonionic water-soluble contrast as a cumulative dose for multiple exams. No oral contrast ingested. Using automated exposure control and adjustment of t he mA and/or kV according to patient size, radiation dose was kept as low as reasonably achievable to obtain optimal diagnostic quality images. DICOM format image data is available electronically for r eview and comparison. FINDINGS: Lower Lungs: Bilateral lower lobe atelectasis without focal consolidation or pleural effusion. Liver: The liver has a homogeneous density without space-occupying lesion. There is no dilation of th e biliary tree. No calcified gallstones. Spleen: Homogeneous density without enlargement. Pancreas: Unremarkable without mass or calcification. Kidneys: Normal in size and shape. No evidence of mass or hydronephrosis. 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 No calcified stones on either side. Adrenal Glands: Unremarkable. Aorta: The aorta and proximal iliac vessels are grossly unremarkable without aneurysmal dilation. Bowel/Mesentery: No dilated loops of small or large bowel. Moderate amount of stool throughout the c olon. Abdominal Wall: Intact. Retroperitoneum: No evidence of adenopathy in the retrocrural, para-aortic, or deep pelvic regions. Bladder: Moderately distended. Contours are smooth. Reproductive Organs: No abnormal masses or calcifications seen. Inguinal: The inguinal region is unremarkable without evidence of adenopathy. Bony Structures: Unremarkable. CONCLUSION: 1. No acute findings in the abdomen/pelvis. Electronically signed by: Hebert Little MD 01/12/2018 9:01 PM EDT
[2018-01-12] MEDS ORDERED: Bisacodyl 10 MG Supp RECTAL PRN (21:17)
[2018-01-12] MEDS ORDERED: Acetaminophen 325 MG Tablet PO PRN (21:17)
[2018-01-12] MEDS ORDERED: Temazepam 15 MG Capsule PO PRN (21:17)
[2018-01-12] MEDS ORDERED: Haloperidol Inj 5 MG/ML Ampul IV.PUSH PRN (21:18)
[2018-01-12] MEDS ORDERED: LORazepam 1 MG Tablet PO PRN (21:18)
[2018-01-12 21:40] LABS: ABG Base Excess 3.2 mmol/L (-2-2); ABG PCO2 44 mmHg (38-42); ABG PO2 83 mmHg (61-120)
[2018-01-12] MEDS ORDERED: Vancomycin Inj 500 MG in Sodium Chlor 0.9% Inj 100 ML IV.SIG ONE (22:00)
[2018-01-13] MEDS ORDERED: Propranolol 10 MG Tablet PO SCH (00:15)
[2018-01-13] MEDS ORDERED: Mirtazapine 15 MG Tablet PO SCH ×3 (00:15→09:00)
[2018-01-13] MEDS: Gabapentin 300 MG Capsule PO SCH ×4 (00:27→17:10)
[2018-01-13] MEDS ORDERED: Vancomycin Consult Pharmacy 1 EACH OTHER SCH (04:00)
[2018-01-13] MEDS: Aztreonam Inj 2 GM in Sodium Chloride 0.9% Inj 100 ML IV.SIG SCH ×3 (04:04→22:05)
[2018-01-13 06:42] LABS: Baso % (Auto) 0.7 % (0.0-2.0); Eos # (Auto) 0.2 th/mm3 (0.0-0.4); Eos % (Auto) 2.7 % (0.0-4.0); Hemoglobin 13.8 gm/dL (13.0-17.0); Lymph # (Auto) 1.9 th/mm3 (1.0-4.8); Lymph % (Auto) 31.9 % (9.0-44.0); Mean Corpuscular HGB Conc 34.5 % (32.0-36.0); Mean Corpuscular Hemoglobin 32.6 pg (27.0-34.0); Mean Corpuscular Volume 94.3 fL (80.0-100.0); Mean Platelet Volume 10.3 fL (7.0-11.0); Mono # (Auto) 0.5 th/mm3 (0.0-0.9); Mono % (Auto) 8.5 % (0.0-8.0); Neut # (Auto) 3.4 th/mm3 (1.8-7.7); Neut % (Auto) 56.2 % (16.0-70.0); Platelet Count 150 th/mm3 (150-450); Red Blood Count 4.24 mil/mm3 (4.50-5.90); Red Cell Distribution Width 12.3 % (11.6-17.2)
[2018-01-13 06:57] LABS: Calcium 8.7 mg/dL (8.5-10.1); Carbon Dioxide 29.3 meq/L (21.0-32.0)
[2018-01-13] MEDS: Multivitamin/Minerals Therapeutic Tablet PO SCH (08:33)
[2018-01-13] MEDS: Folic Acid 1 MG Tablet PO SCH (08:33)
[2018-01-13] MEDS: QUEtiapine 25 MG Tablet PO SCH ×2 (08:35→22:07)
[2018-01-13] MEDS: Escitalopram 10 MG Tablet PO SCH (08:35)
[2018-01-13] MEDS: Propranolol 10 MG Tablet PO SCH ×3 (08:35→17:10)
[2018-01-13] MEDS: Senna/Docusate Sodium 8.6/50 MG Tablet PO SCH ×2 (08:35→20:49)
[2018-01-13] MEDS: lamoTRIgine 100 MG Tablet PO SCH (08:36)
[2018-01-13] MEDS: REXULTI 1 MG PO SCH (08:39)
[2018-01-13] MEDS ORDERED: GENVOYA PO SCH (09:00)
[2018-01-13] MEDS ORDERED: Vancomycin Inj 1,000 MG in Sodium Chlor 0.9% Inj 250 ML IV.SIG SCH (10:00)
[2018-01-13] MEDS: Vancomycin Inj 1,500 MG in Sodium Chlor 0.9% Inj 500 ML IV.SIG SCH (12:07)
[2018-01-13] MEDS ORDERED: clonazePAM 0.5 MG Tablet PO PRN (13:25)
[2018-01-13] MEDS: Acetaminophen/Codeine 300/30 MG Tablet PO PRN ×2 (15:14→22:06)
--- NOTE | 2018-01-13 16:36 | P.HP ---
History of Present Illness Primary Care Physician: Jay Stewart History of Present Illness: 37-year-old male with HIV, type 2 diabetes, schizophrenia, bipolar disorder, previous history of pneumonia. He presents to the ER with bilateral pneumonia. Onset was over the last 4-5 days when he experienced increased foot swelling, increased dyspnea, increasing cough. He reports that he quit smoking approximately 2 weeks ago and has been dating since then, prior to that he smoked for 23 years. More distant history includes a history of ICU admission with intubation for severe pneumonia 1 year ago that required tracheostomy placement. He reports that his HIV has a low viral load but he cannot recall his last CD4 count. He has a history of poor dentition and is scheduled to have all of his teeth removed and replaced with dentures. Inpatient Certification: I certify that the inpatient services were ordered in accordance with Medicare regulations governing the order. This includes certification that hospital inpatient services are reasonable and necessary and in the case of services not specified as inpatient-only under 42 CFR 419.22(n), that they are appropriately provided as inpatient services in accordance to with the 2-midnight benchmark under 43 CFR 412.3(e) Estimated Total Length of Stay (Days): 2 Plans for Post Hospital Care: Not yet determined Review of Systems Constitutional: Reports body ache(s), Reports chills, Reports fatigue, Reports fever(s), Reports lack of energy Eyes: Denies blind spots, Denies blurry vision, Denies bulging eyes, Denies change in vision, Denies double vision, Denies discharge, Denies dry eyes, Denies floaters, Denies irritation, Denies itchy eyes, Denies loss of vision, Denies pain, Denies requires corrective lenses, Denies sensitivity to light, Denies other Ears, Nose, Mouth, and Throat: Denies abnormal hearing, Denies bleeding gums, Denies bad breath, Denies change in voice, Denies dental pain, Denies difficulty swallowing, Denies dizziness, Denies dry mouth, Denies ear discharge , Denies ear pain, Denies facial pain, Denies headache(s), Denies hearing loss, Denies hoarseness, Denies lip swelling, Denies nosebleed, Denies mouth lesions, Denies mouth pain, Denies nasal congestion, Denies nasal discharge, Denies nasal obstruction, Denies nasal trauma, Denies neck lump, Denies neck pain, Denies nose pain, Denies pain with swallowing, Denies poor balance, Denies post nasal drip, Denies ringing in the ears, Denies sinus pain, Denies sinus pressure , Denies sore throat, Denies throat swelling, Denies tongue swelling, Denies other Cardiovascular: Denies chest pain, Denies chest pain at rest, Denies chest pain with activity, Denies excessive sweating, Denies fainting, Denies fast heart rate, Denies foot swelling, Denies generalized swelling, Denies irregular heart rhythm, Denies leg pain with activity, Denies leg sores, Denies leg swelling, Denies lightheadedness, Denies radiating jaw, neck or arm pain, Denies rapid, pounding, or irregular heartbeat, Denies shortness of breath, Denies shortness of breath with activity, Denies shortness of breath when lying down, Denies shortness of breath causing sudden awakening, Denies slow heart rate, Denies other Respiratory: Reports chest congestion, Reports cough, Reports pain with cough, Reports shortness of breath, Reports shortness of breath with activity, Denies wheezing Gastrointestinal: Denies abdominal pain, Denies belching, Denies black, tarry stools, Denies bloating, Denies bright, red blood in stools, Denies change in bowel habits, Denies constant urge to pass stool, Denies change in stools, Denies coffee ground vomit, Denies constipation, Denies cramping, Denies difficulty swallowing, Denies excessive passing of gas, Denies feeling full early, Denies heartburn, Denies incontinent of stools, Denies loose stools, Denies nausea, Denies pain with swallowing, Denies vomiting, Denies vomiting blood, Denies other Genitourinary: Denies blood in semen, Denies blood in urine, Denies decreased urination, Denies difficulty urinating, Denies difficulty with ejaculations, Denies erectile dysfunction, Denies genital lesions, Denies genital pain, Denies painful urination, Denies side pain, Denies frequent nighttime urination , Denies painful ejaculations, Denies penile discharge, Denies scrotal swelling , Denies testicle lump, Denies testicle pain, Denies urinary frequency, Denies urinary hesitancy, Denies urinary incontinence, Denies urinary urgency, Denies other Musculoskeletal: Denies abnormal walking, Denies back pain, Denies body aches, Denies decreased muscle mass, Denies deformity, Denies joint pain, Denies joint swelling, Denies limited joint movement, Denies loss of height, Denies muscle cramps, Denies muscle weakness, Denies neck pain, Denies numbness, Denies radiating pain into limb, Denies stiffness, Denies tingling, Denies other Skin/Breast: Denies acne, Denies bleeding lesions, Denies boil, Denies breast swelling, Denies breast skin changes, Denies breast pain, Denies breast lump, Denies change in breast shape, Denies change in hair, Denies change in skin color, Denies changing lesions, Denies dry skin, Denies excessive hair growth, Denies hair loss, Denies itching, Denies lesions, Denies nail changes, Denies new lesions, Denies nipple discharge, Denies non-healing lesions, Denies redness , Denies sensitivity to light, Denies rash, Denies skin pain, Denies skin ulcer , Denies sores, Denies stretch fong, Denies unusual bruising, Denies wounds, Denies yellowing of the skin, Denies other Neurologic: Denies abnormal hearing, Denies abnormal movements, Denies abnormal speech, Denies abnormal walking, Denies behavioral changes, Denies burning sensations, Denies confusion, Denies dizziness, Denies fainting, Denies frequent falls, Denies headache(s), Denies lack of coordination, Denies localized weakness, Denies loss of vision, Denies memory loss, Denies numbness, Denies other visual disturbances, Denies radiating pain, Denies restless legs, Denies convulsions, Denies seizure-like activity, Denies sensory deficit, Denies tingling, Denies tingling/numbness/burning sensations, Denies tremor(s), Denies unsteadiness, Denies weakness, Denies other Psychiatric: Denies behavioral changes, Denies thoughts of hurting/killing others, Denies thoughts of hurting/killing yourself Endocrine: Denies cold intolerance, Denies excessive sweating, Denies flushing, Denies heat intolerance, Denies increased hunger, Denies increased thirst, Denies increased urination, Denies rapid, pounding, or irregular heartbeat, Denies other Hematologic/Lymphatic: Denies easy bleeding, Denies easy bruising, Denies enlarged lymph nodes, Denies other PMFSH - History History Provided By: Patient - Medical History Medical History: Medical History (Last Updated 01/12/18 @ 18:27 by Marleni Jhaveri RN) Anxiety Bipolar 1 disorder Depression Diabetes mellitus HIV (human immunodeficiency virus infection) High cholesterol History of alcohol abuse Insomnia Pancreatitis Schizophrenia Tachycardia - Surgical History Surgical History: Surgical History (Last Updated 01/12/18 @ 18:27 by Marleni Jhaveri RN) History of appendectomy Hx of tracheostomy - Tobacco History Smoking Status: Former smoker - Alcohol History How Often Do You Have a Drink Containing Alcohol: Never - Substance Use History Substance History: No History of Abuse - Travel History Recent Travel in the [place] Within the Last 8 Weeks: No Recent Travel Out of the Country Within the Last 8 Weeks: No - Immunization History Tetanus Immunization: Unsure Hx Influenza Vaccine This Season: Yes Medications and Allergies Active Medications: Active Medications Acetaminophen (Tylenol) 650 mg PO Q4H PRN PRN Reason: Temp > 100.4 Acetaminophen/Codeine Phosphate (Tylenol W/Cod #3) 1 tab PO Q6H PRN PRN Reason: PAIN SCALE 1 TO 10 Last Admin: 01/13/18 15:14 Dose: 1 tab Al Hydroxide/Mg Hydroxide (Milk Of Alia Lihomar) 30 ml PO Q12H PRN PRN Reason: Mild Constipation Albuterol (Duoneb Neb (Prn)) 1 ampul NEB Q4HR NEB PRN PRN Reason: SOB/Wheezing Bisacodyl (Dulcolax Supp) 10 mg RECTAL DAILY PRN PRN Reason: SEVERE CONSITIPATION Clonazepam (Klonopin) 0.5 mg PO Q12HR PRN PRN Reason: ANXIETY Escitalopram Oxalate (Lexapro) 10 mg PO DAILY [facility] Last Admin: 01/13/18 08:35 Dose: 10 mg Flumazenil (Romazecon Inj) 0.2 mg IV.PUSH Q1M PRN PRN Reason: OVERSEDATION Folic Acid (Folic Acid) 1 mg PO DAILY [facility] Stop: 01/18/18 08:59 Last Admin: 01/13/18 08:33 Dose: 1 mg Gabapentin (Neurontin) 600 mg PO Q6HR [facility] Last Admin: 01/13/18 11:22 Dose: 600 mg Haloperidol Lactate (Haldol Inj) 1 mg IV.PUSH Q15M PRN PRN Reason: for severe agitation Aztreonam 2 gm/ Sodium (Chloride) 100 mls @ 200 mls/hr IV.SIG Q8H [facility] Last Infusion: 01/13/18 12:09 Dose: Infused Pharmacy Profile Note (Vancomycin Consult Pharmacy) 0 mls @ 0 mls/hr OTHER UNSCH [facility] Vancomycin HCl 1,500 mg/ (Sodium Chloride) 515 mls @ 250 mls/hr IV.SIG Q12H [facility] Last Admin: 01/13/18 12:07 Dose: 250 mls/hr Lactulose (Lactulose Liq) 30 ml PO DAILY PRN PRN Reason: SEVERE CONSITIPATION Lamotrigine (Lamictal) 300 mg PO DAILY [facility] Last Admin: 01/13/18 08:36 Dose: 300 mg Lorazepam (Ativan) 1 mg PO Q4H PRN PRN Reason: for CIWA 8-10 Lorazepam (Ativan) 2 mg PO Q2H PRN PRN Reason: for CIWA 11-14 Lorazepam (Ativan Inj) 2 mg IV.PUSH Q2H PRN PRN Reason: for CIWA 11-14 Lorazepam (Ativan Inj) 2 mg IV.PUSH Q1H PRN PRN Reason: for CIWA 15-20 Lorazepam (Ativan Inj) 2 mg IV.PUSH Q15M PRN PRN Reason: for CIWA > 20 Lorazepam (Ativan Inj) 1 mg IV.PUSH Q4H PRN PRN Reason: for CIWA 8-10 Mirtazapine (Remeron) 30 mg PO [facility] Miscellaneous Information ([facility] Ordered Lab Info) 0 each OTHER DAILY@ 1145 [facility] Stop: 01/14/18 12:46 Multivitamins/Minerals (Theragran-M) 1 tab PO DAILY [facility] Stop: 01/18/18 08:59 Last Admin: 01/13/18 08:33 Dose: 1 tab Ondansetron HCl (Zofran Inj) 4 mg IV.PUSH Q6H PRN PRN Reason: NAUSEA OR VOMITING Pantoprazole Sodium (Protonix) 40 mg PO DAILY [facility] Last Admin: 01/13/18 08:35 Dose: 40 mg Pt Own Rexulti 1 Mg 0 each PO DAILY [facility] Last Admin: 01/13/18 08:39 Dose: Not Given Pt Own Genvoya Tab 0 each PO HS [facility] Propranolol HCl (Inderal) 10 mg PO TID [facility] Last Admin: 01/13/18 12:06 Dose: 10 mg Quetiapine Fumarate (Seroquel) 50 mg PO BID [facility] Last Admin: 01/13/18 08:35 Dose: 50 mg Senna/Docusate Sodium (Ursula-Colace) 1 tab PO BID [facility] Last Admin: 01/13/18 08:35 Dose: Not Given Sennosides (Senokot) 17.2 mg PO Q12H PRN PRN Reason: Moderate Constipation Temazepam (Restoril) 15 mg PO HS PRN PRN Reason: INSOMNIA Thiamine HCl (Vitamin B1) 100 mg PO DAILY [facility] Last Admin: 01/13/18 08:34 Dose: 100 mg Allergies Allergy/AdvReac Type Severity Reaction Status Date / Time naproxen Allergy Severe Vomiting Verified 01/12/18 18:18 penicillin G Allergy Severe Anaphylaxis Verified 01/12/18 18:18 Home Medications Medication Instructions Recorded Confirmed Type acetaminophen-codeine 1 tab PO Q6H PRN 01/12/18 01/12/18 History [Tylenol-Codeine #3] brexpiprazole [Rexulti] 1 mg PO DAILY 01/12/18 01/12/18 History [id number] alafen 1 tab PO DAILY 01/12/18 01/12/18 History [Genvoya] escitalopram oxalate 10 mg PO DAILY 01/12/18 01/12/18 History gabapentin 1 tab PO Q6HR 01/12/18 01/12/18 History lamotrigine 300 mg PO DAILY 01/12/18 01/12/18 History mirtazapine 30 mg PO DAILY 01/12/18 01/12/18 History pantoprazole 40 mg PO DAILY 01/12/18 01/12/18 History propranolol 10 mg PO TID 01/12/18 01/12/18 History quetiapine 50 mg PO BID 01/12/18 01/12/18 History quetiapine 300 mg PO HS 01/12/18 01/12/18 History rosuvastatin 10 mg PO DAILY 01/12/18 01/12/18 History sumatriptan succinate 50 mg PO Q2-4H PRN 01/12/18 01/12/18 History Exam Vital signs: Vital Signs 01/12/18 18:20 01/12/18 19:02 01/12/18 20:25 Temperature 99.0 F Pulse Rate 80 65 Respiratory Rate 18 18 Blood Pressure 113/63 112/72 Pulse Oximetry 94 L 96 97 01/12/18 21:57 01/12/18 22:39 01/13/18 00:00 Temperature 96.4 F L Pulse Rate 66 62 Respiratory Rate 18 18 Blood Pressure 112/67 110/70 Pulse Oximetry 97 96 95 01/13/18 04:00 01/13/18 04:05 01/13/18 08:00 Temperature 96.8 F L 97.2 F L Pulse Rate 69 77 Respiratory Rate 18 18 21 Blood Pressure 94/59 L Pulse Oximetry 93 L 95 01/13/18 14:45 Temperature Pulse Rate Respiratory Rate Blood Pressure Pulse Oximetry 94 L Intake & Output 01/12/18 01/13/18 01/13/18 18:59 06:59 18:59 Intake Total 400 / 400 440 / 440 Output Total 200 / 200 Balance 400 / 400 240 / 240 Weight 85.6 kg 81.1 kg Intake: IV 400 / 400 200 / 200 Azactam Inj 1,000 MG In NS Inj 100 / 100 100 ML @ 200 mls/hr IV.SIG ONCE ONE Rx#:[id number] Azactam Inj 2 GM In NS Inj 100 200 / 200 ML @ 200 mls/hr IV.SIG Q8H [facility] Rx#:[id number] Vancomycin Inj 1 gm In 200 ml @ 200 / 200 200 mls/hr IV.SIG ONCE ONE Rx# :[id number] Vancomycin Inj 500 MG In NS Inj 100 / 100 100 ML @ 200 mls/hr IV.SIG ONCE ONE Rx#:[id number] Oral 240 / 240 Output: Urine 200 / 200 Other: # Voids 5 Date of Last Bowel Movement 01/12/18 01/12/18 Weight On Admission 80.739 kg Narrative: GENERAL: Alert and oriented 3, tired appearing, no overt coughing SKIN: Warm and dry. HEAD: Atraumatic. Normocephalic. EYES: Pupils equal and round. No scleral icterus. No injection or drainage. ENT: No nasal bleeding or discharge. Mucous membranes pink and moist. NECK: Trachea midline. No JVD. CARDIOVASCULAR: Regular rate and rhythm. RESPIRATORY: No accessory muscle use. Scattered crackles bilaterally, diminished breath sounds bilaterally GASTROINTESTINAL: Abdomen soft, non-tender, nondistended. Hepatic and splenic margins not palpable. MUSCULOSKELETAL: Lower extremities have trace edema to mid huang NEUROLOGICAL: Awake and alert. No obvious cranial nerve deficits. Motor grossly within normal limits. Five out of 5 muscle strength in the arms and legs. Normal speech. PSYCHIATRIC: Appropriate mood and affect; insight and judgment normal. Results - Labs CBC & Chem 7: 01/13/18 06:00 01/13/18 06:00 Labs: Laboratory Results - last 24 hr 01/12/18 01/12/18 01/12/18 19:20 19:20 19:20 CBC w Diff Auto diff final WBC 7.3 RBC 4.02 L Hgb 13.2 Hct 38.5 L MCV 95.8 MCH 32.9 MCHC 34.4 RDW 11.7 Plt Count 148 L MPV 10.6 Neut % (Auto) 58.2 Lymph % (Auto) 31.6 [place] % (Auto) 6.6 Eos % (Auto) 2.7 Baso % (Auto) 0.9 Neut # (Auto) 4.2 Lymph # (Auto) 2.3 [place] # (Auto) 0.5 Eos # (Auto) 0.2 Baso # (Auto) 0.1 WBC Differential . Diff Scan Differential Comment . PT 10.1 INR 1.0 APTT 25.3 Puncture Site Patient Temperature O2 Saturation ABG pH ABG pCO2 ABG pO2 ABG HCO3 ABG O2 Content ABG Base Excess ABG Methemoglobin Farrukh Test Hemoglobin Carboxyhemoglobin O2 Delivery Device Liter Flow Inspired O2 Critical Value Sodium 136 Potassium 3.7 Chloride 103 Carbon Dioxide 28.9 Anion Gap 4 L BUN 14 Creatinine 1.10 Estimated GFR 76 L POC Glucose Random Glucose 102 Calcium 8.4 L Magnesium 2.2 Total Bilirubin 0.5 AST 129 H ALT 63 Alkaline Phosphatase 118 H Troponin I Less than 0.02 L B-Natriuretic Peptide Total Protein 7.5 Albumin 3.6 Lipase 32 L 01/12/18 01/12/18 01/12/18 19:20 19:49 21:26 CBC w Diff WBC RBC Hgb Hct MCV MCH MCHC RDW Plt Count MPV Neut % (Auto) Lymph % (Auto) [place] % (Auto) Eos % (Auto) Baso % (Auto) Neut # (Auto) Lymph # (Auto) [place] # (Auto) Eos # (Auto) Baso # (Auto) WBC Differential Diff Scan Differential Comment PT INR APTT Puncture Site Right radial Left radial Patient Temperature 98.6 98.6 O2 Saturation 82 L* 94 ABG pH 7.39 7.41 ABG pCO2 47 H 44 H ABG pO2 48 L* 83 ABG HCO3 28 H 27 H ABG O2 Content 14.9 17.3 ABG Base Excess 3.4 H 3.2 H ABG Methemoglobin 1.4 1.3 Farrukh Test Y Y Hemoglobin 13.0 13.0 Carboxyhemoglobin 1.7 1.7 O2 Delivery Device Nasal cannula Liter Flow 3.00 Inspired O2 21 21 Critical Value Yes No Sodium Potassium Chloride Carbon Dioxide Anion Gap BUN Creatinine Estimated GFR POC Glucose Random Glucose Calcium Magnesium Total Bilirubin AST ALT Alkaline Phosphatase Troponin I B-Natriuretic Peptide 6 Total Protein Albumin Lipase 01/13/18 01/13/18 01/13/18 06:00 06:00 09:58 CBC w Diff Slide review pending WBC 6.0 RBC 4.24 L Hgb 13.8 Hct 40.0 MCV 94.3 MCH 32.6 MCHC 34.5 RDW 12.3 Plt Count 150 MPV 10.3 Neut % (Auto) 56.2 Lymph % (Auto) 31.9 [place] % (Auto) 8.5 H Eos % (Auto) 2.7 Baso % (Auto) 0.7 Neut # (Auto) 3.4 Lymph # (Auto) 1.9 [place] # (Auto) 0.5 Eos # (Auto) 0.2 Baso # (Auto) 0.0 WBC Differential . Diff Scan Auto diff confirmed Differential Comment . PT INR APTT Puncture Site Patient Temperature O2 Saturation ABG pH ABG pCO2 ABG pO2 ABG HCO3 ABG O2 Content ABG Base Excess ABG Methemoglobin Farrukh Test Hemoglobin Carboxyhemoglobin O2 Delivery Device Liter Flow Inspired O2 Critical Value Sodium 140 Potassium 4.0 Chloride 106 Carbon Dioxide 29.3 Anion Gap 5 BUN 13 Creatinine 1.10 Estimated GFR 76 L POC Glucose 156 H Random Glucose 124 H Calcium 8.7 Magnesium Total Bilirubin AST ALT Alkaline Phosphatase Troponin I B-Natriuretic Peptide Total Protein Albumin Lipase - Imaging Impressions Venous Doppler Study 01/12/18 18:56 CONCLUSION: 1. The study is negative for bilateral lower extremity deep venous thrombosis. Chest X-Ray 01/12/18 18:59 CONCLUSION: Findings suggest a nonconsolidative infiltrate lower lateral left lung. Recommend follow-up films to radiographic resolution. Chest CTA 01/12/18 19:41 CONCLUSION: 1. Study is negative for pulmonary embolism. 2. Bilateral dependent lung atelectasis or nonconsolidative infiltrates. Abdomen/Pelvis CT 01/12/18 19:43 CONCLUSION: 1. No acute findings in the abdomen/pelvis. Caprini VTE Risk Assessment Caprini VTE Risk Assessment: Moderate/High Risk (score >= 2) Caprini Risk Assessment Model: Point Value = 1 Point Value = 2 Point Value = 3 Point Value = 5 Age 41-60 Minor surgery BMI > 25 kg/m2 Swollen legs Varicose veins or History of unexplained or recurrent spontaneous Oral contraceptives or hormone replacement Sepsis (< 1 month) Serious lung disease, including pneumonia (< 1 month) Abnormal pulmonary function Acute myocardial infarction Congestive heart failure (< 1 month) History of inflammatory bowel disease Medical patient at bed rest Age 61-74 Arthroscopic surgery Major open surgery (> 45 min) Laparoscopic surgery (> 45 min) Malignancy Confined to bed (> 72 hours) Immobilizing plaster cast Central venous access Age >= 75 History of VTE Family history of VTE Factor V Leiden Prothrombin [id number] Lupus anticoagulant Anticardiolipin antibodies Elevated serum homocysteine Heparin-induced thrombocytopenia Other congenital or acquired thrombophilia Stroke (< 1 month) Elective arthroplasty Hip, pelvis, or leg fracture Acute spinal cord injury (< 1 month) Prophylaxis Regimen: Total Risk Factor Score Risk Level Prophylaxis Regimen 0-1 Low Early ambulation 2 Moderate Order ONE of the following: *Sequential Compression Device (SCD) *Heparin 5000 units SQ BID 3-4 Higher Order ONE of the following medications: *Heparin 5000 units SQ TID *Enoxaparin/Lovenox 40 mg SQ daily (WT < 150 kg, CrCl > 30 mL/min) *Enoxaparin/Lovenox 30 mg SQ daily (WT < 150 kg, CrCl > 10-29 mL/min) *Enoxaparin/Lovenox 30 mg SQ BID (WT < 150 kg, CrCl > 30 mL/min) AND/OR *Sequential Compression Device (SCD) 5 or more Highest Order ONE of the following medications: *Heparin 5000 units SQ TID (Preferred with Epidurals) *Enoxaparin/Lovenox 40 mg SQ daily (WT < 150 kg, CrCl > 30 mL/min) *Enoxaparin/Lovenox 30 mg SQ daily (WT < 150 kg, CrCl > 10-29 mL/min) *Enoxaparin/Lovenox 30 mg SQ BID (WT < 150 kg, CrCl > 30 mL/min) AND *Sequential Compression Device (SCD) Assessment and Plan - Plan Bilateral pneumonia with hypoxemia Covered aggressively with aztreonam and vancomycin Patient has a history of HIV, CD4 is uncertain by history, CD4 drawn today We will monitor clinically, if failing to improve consult infectious disease h/o HIV Checking CD4 for update and follow, to rule out more rare causes of pneumonia By patient history his last viral load was undetectable Type 2 diabetes Sliding scale insulin coverage with Accu-Cheks Diabetic diet h/o bipolar, schizophrenia Continue with home dose antipsychotics, antidepressants and anxiety medications h/o poor dentition Consider GI arterial causes of pneumonia, covered with aztreonam and vancomycin Patient requested Tylenol 3 home dose for pain, oral benzocaine topically DVT prophylaxis Lovenox
[2018-01-13] MEDS: Enoxaparin Inj 40 MG/0.4 ML Syringe SQ SCH (17:14)
[2018-01-13] MEDS ORDERED: Benzocaine 20% Oral Spray 60 ML Can BUCCAL PRN (17:55)
[2018-01-13] MEDS: GENVOYA PO SCH (22:05)
[2018-01-13] MEDS: Mirtazapine 15 MG Tablet PO SCH (22:06)
--- NOTE | 2018-01-14 00:21 | ECG ---
Date Performed: 01/12/2018 Time Performed: 19:22:47 PTAGE: 37 years EKG: Sinus rhythm MODERATE VOLTAGE CRITERIA FOR LVH, CONSIDER NORMAL VARIANT BORDERLINE ECG NO PREVIOUS TRACING DOCTOR: Ministerio Garcia Interpretating Date/Time 01/14/2018 00:19:57
[2018-01-14] MEDS: Gabapentin 300 MG Capsule PO SCH ×4 (01:03→18:20)
[2018-01-14] MEDS: Vancomycin Inj 1,500 MG in Sodium Chlor 0.9% Inj 500 ML IV.SIG SCH ×2 (01:03→14:07)
[2018-01-14] MEDS: Aztreonam Inj 2 GM in Sodium Chloride 0.9% Inj 100 ML IV.SIG SCH ×3 (05:59→19:53)
[2018-01-14] MEDS: Multivitamin/Minerals Therapeutic Tablet PO SCH (08:35)
[2018-01-14] MEDS: lamoTRIgine 100 MG Tablet PO SCH (08:35)
[2018-01-14] MEDS: QUEtiapine 25 MG Tablet PO SCH ×2 (08:35→22:17)
[2018-01-14] MEDS: Escitalopram 10 MG Tablet PO SCH (08:35)
[2018-01-14] MEDS: Propranolol 10 MG Tablet PO SCH ×3 (08:36→17:49)
[2018-01-14] MEDS: Folic Acid 1 MG Tablet PO SCH (08:36)
[2018-01-14] MEDS: Senna/Docusate Sodium 8.6/50 MG Tablet PO SCH ×2 (08:36→22:13)
[2018-01-14] MEDS: Enoxaparin Inj 40 MG/0.4 ML Syringe SQ SCH (08:36)
[2018-01-14] MEDS: Acetaminophen/Codeine 300/30 MG Tablet PO PRN ×2 (10:34→19:50)
[2018-01-14] MEDS ORDERED: Dextrose 50% in Water 50 ML Vial IV.PUSH PRN (10:38)
[2018-01-14] MEDS ORDERED: Pharmacy Ordered Lab Info OTHER SCH (11:45)
[2018-01-14] MEDS: Insulin NovoLOG Aspart Correctional Sugar Inj SQ SCH ×3 (12:25→22:08)
[2018-01-14] MEDS: REXULTI 1 MG PO SCH (12:43)
[2018-01-14] MEDS: clonazePAM 0.5 MG Tablet PO SCH ×2 (14:06→22:13)
--- NOTE | 2018-01-14 16:01 | P.PN ---
Subjective Interval history: Patient felt anxious this morning and wanted to leave [facility] because he was not getting his headache medicine and Levemir. These issues were corrected and he is not willing to stay. He is breathing much better off of oxygen lungs better aerated. Physical Exam Vital signs: Vital Signs 01/13/18 17:24 01/13/18 19:45 01/13/18 20:30 Temperature 97.6 F Pulse Rate 75 Respiratory Rate 18 Blood Pressure 91/52 L Pulse Oximetry 95 92 L 92 L 01/14/18 00:00 01/14/18 04:06 01/14/18 08:00 Temperature 96.6 F L 96.7 F L 96.7 F L Pulse Rate 73 84 63 Respiratory Rate 18 18 18 Blood Pressure 93/56 L 102/54 L 103/67 Pulse Oximetry 94 L 92 L 95 01/14/18 09:00 01/14/18 12:00 Temperature 96.0 F L Pulse Rate 63 72 Respiratory Rate 16 Blood Pressure 112/71 Pulse Oximetry 94 L Intake & Output 01/13/18 01/14/18 01/14/18 18:59 06:59 18:59 Intake Total 440 / 440 1710 / 1710 100 / 100 Output Total 200 / 200 Balance 240 / 240 1710 / 1710 100 / 100 Weight 85.7 kg Intake: IV 200 / 200 1230 / 1230 100 / 100 Azactam Inj 2 GM In NS Inj 100 200 / 200 200 / 200 100 / 100 ML @ 200 mls/hr IV.SIG Q8H [facility] Rx#:[id number] Vancomycin Inj 1,500 MG In NS 1030 / 1030 Inj 500 ML @ 250 mls/hr IV.SIG Q12H [facility] Rx#:[id number] Oral 240 / 240 480 / 480 Output: Urine 200 / 200 Other: # Voids 3 Date of Last Bowel Movement 01/12/18 01/12/18 # Bowel Movements 1 Narrative: GENERAL: Alert and oriented 3, no acute distress SKIN: Warm and dry. HEAD: Normocephalic. EYES: No scleral icterus. No injection or drainage. NECK: Supple, trachea midline. No JVD or lymphadenopathy. CARDIOVASCULAR: Regular rate and rhythm without murmurs, gallops, or rubs. RESPIRATORY: Crackles in bilateral bases, no significant wheezing, airway is open and air exchange is adequate GASTROINTESTINAL: Abdomen soft, non-tender, nondistended. MUSCULOSKELETAL: No cyanosis, or edema. BACK: Nontender without obvious deformity. No CVA tenderness. Results - Labs CBC & Chem 7: 01/13/18 06:00 01/13/18 06:00 Laboratory Results - last 24 hr 01/14/18 11:45 Vancomycin Trough 18.9 H Assessment and Plan - Plan Bilateral pneumonia with hypoxemia Covered aggressively with aztreonam and vancomycin History of HIV. CD4, CD8 pending Much improvement since yesterday, now off of oxygen, continue current antibiotics h/o HIV HIV specific causes of pneumonia will be covered if CD4 count is low, lab results pending By patient history his last viral load was undetectable Type 2 diabetes Sliding scale insulin coverage with Accu-Cheks Patient requested to have his Levemir added back on his daily meds, 20 units nightly Diabetic diet h/o migraine headaches Sumatriptan added back to his daily meds as needed h/o bipolar, schizophrenia Continue with home dose antipsychotics, antidepressants and anxiety medications h/o poor dentition Consider GI arterial causes of pneumonia, covered with aztreonam and vancomycin Patient requested Tylenol 3 home dose for pain, oral benzocaine topically DVT prophylaxis Lovenox
[2018-01-14] MEDS ORDERED: Insulin Detemir Inj 1,000 UNIT/10 ML Vial SQ SCH (21:00)
[2018-01-14] MEDS: GENVOYA PO SCH (21:18)
[2018-01-14] MEDS: Mirtazapine 15 MG Tablet PO SCH (22:13)
[2018-01-15] MEDS: Gabapentin 300 MG Capsule PO SCH ×3 (00:07→12:28)
[2018-01-15] MEDS: Vancomycin Inj 1,500 MG in Sodium Chlor 0.9% Inj 500 ML IV.SIG SCH (00:08)
[2018-01-15 05:16] LABS: Glomerular Filtration Rate Greater Than 89 mL/min (>89)
[2018-01-15] MEDS: Aztreonam Inj 2 GM in Sodium Chloride 0.9% Inj 100 ML IV.SIG SCH (05:31)
[2018-01-15] MEDS: clonazePAM 0.5 MG Tablet PO SCH ×2 (05:34→13:15)
[2018-01-15] MEDS: Multivitamin/Minerals Therapeutic Tablet PO SCH (08:36)
[2018-01-15] MEDS: Escitalopram 10 MG Tablet PO SCH (08:36)
[2018-01-15] MEDS: QUEtiapine 25 MG Tablet PO SCH (08:36)
[2018-01-15] MEDS: lamoTRIgine 100 MG Tablet PO SCH (08:36)
[2018-01-15] MEDS: Enoxaparin Inj 40 MG/0.4 ML Syringe SQ SCH (08:37)
[2018-01-15] MEDS: Folic Acid 1 MG Tablet PO SCH (08:37)
[2018-01-15] MEDS: Senna/Docusate Sodium 8.6/50 MG Tablet PO SCH (08:37)
[2018-01-15] MEDS: Insulin NovoLOG Aspart Correctional Sugar Inj SQ SCH ×2 (08:37→12:29)
[2018-01-15] MEDS: REXULTI 1 MG PO SCH (08:37)
[2018-01-15] MEDS: Propranolol 10 MG Tablet PO SCH ×2 (08:42→12:29)
[2018-01-15] MEDS ORDERED: levoFLOXacin 750 MG Tablet PO SCH (12:00)
[2018-01-15] MEDS: Acetaminophen/Codeine 300/30 MG Tablet PO PRN (12:28)
--- NOTE | 2018-01-15 13:56 | P.DS ---
Date of admission: 01/12/18 21:11 Primary care physician: Jay Stewart Brief History from admission: 37-year-old male with HIV, type 2 diabetes, schizophrenia, bipolar disorder, previous history of pneumonia. He presents to the ER with bilateral pneumonia. Onset was over the last 4-5 days when he experienced increased foot swelling, increased dyspnea, increasing cough. He reports that he quit smoking approximately 2 weeks ago and has been dating since then, prior to that he smoked for 23 years. More distant history includes a history of ICU admission with intubation for severe pneumonia 1 year ago that required tracheostomy placement. He reports that his HIV has a low viral load but he cannot recall his last CD4 count. He has a history of poor dentition and is scheduled to have all of his teeth removed and replaced with dentures. DS: Medications - Discharge Medications Prescriptions: levofloxacin 750 mg PO DAILY 14 Days #14 tab DS: Summary Hospital Course: 37-year-old male with a history of HIV and type 2 diabetes, bipolar schizophrenia, and previous pneumonia 1 year ago that required intubation. He presented to the ER with shortness of breath and cough, chest x-ray showed bilateral pneumonia. Initially he was hypoxemic but after 1 day of therapy weaned off of oxygen and was able to ambulate the hallways yesterday. His mother brought in a CD4, CD8 count that shows normal levels. His last hemoglobin A1c was 5.8. Overall his risk for infection by HIV specific diseases is low. He requested to go home. I feel at this point he would be safe to be discharged on broad-spectrum antibiotic coverage with Levaquin. We will give test dose in the hospital. He is agreed to follow-up with his primary care provider this week. I explained the takes approximately 7-14 days of treatment to get rid of the pneumonia. In the meantime he will be helpful to do some light walking and deep breathing. - Time Spent with Patient Total time spent providing and/or coordinating discharge services: Exam Vital signs: Vital Signs 01/14/18 16:00 01/14/18 20:00 01/14/18 20:05 Temperature 98.2 F 97.8 F Pulse Rate 67 80 Respiratory Rate 17 20 Blood Pressure 116/80 110/58 L Pulse Oximetry 93 L 93 L 94 L 01/14/18 23:10 01/15/18 00:00 01/15/18 04:00 Temperature 96.9 F L 96.8 F L Pulse Rate 88 70 70 Respiratory Rate 20 20 Blood Pressure 92/54 L 94/51 L Pulse Oximetry 94 L 93 L 01/15/18 08:00 01/15/18 12:00 Temperature 96.2 F L 96.3 F L Pulse Rate 81 85 Respiratory Rate 17 16 Blood Pressure 128/82 114/73 Pulse Oximetry 93 L 93 L Intake & Output 01/14/18 01/15/18 01/15/18 18:59 06:59 18:59 Intake Total 615 / 615 955 / 955 Output Total 800 / 800 Balance -185 / -185 955 / 955 Weight 85.6 kg Intake: IV 615 / 615 715 / 715 Azactam Inj 2 GM In NS Inj 100 100 / 100 200 / 200 ML @ 200 mls/hr IV.SIG Q8H JOSE GUADALUPE Rx#:[id number] Vancomycin Inj 1,500 MG In NS 515 / 515 515 / 515 Inj 500 ML @ 250 mls/hr IV.SIG Q12H JOSE GUADALUPE Rx#:[id number] Oral 240 / 240 Output: Urine 800 / 800 Other: # Voids 1 Date of Last Bowel Movement 01/14/18 01/14/18 Results Procedures completed during hospitalization: none Labs on day of discharge: Labs from last 24 hours 01/15/18 01/14/18 01/14/18 04:40 22:02 11:45 Creatinine 0.87 Estimated GFR Greater than 89 POC Glucose 240 H Vancomycin Trough 18.9 H - Impressions ITS Impressions Venous Doppler Study 01/12/18 18:56 CONCLUSION: 1. The study is negative for bilateral lower extremity deep venous thrombosis. Chest X-Ray 01/12/18 18:59 CONCLUSION: Findings suggest a nonconsolidative infiltrate lower lateral left lung. Recommend follow-up films to radiographic resolution. Chest CTA 01/12/18 19:41 CONCLUSION: 1. Study is negative for pulmonary embolism. 2. Bilateral dependent lung atelectasis or nonconsolidative infiltrates. Abdomen/Pelvis CT 01/12/18 19:43 CONCLUSION: 1. No acute findings in the abdomen/pelvis. Discharge Plan - Discharge Disposition Patient Disposition: Discharge Home - Discharge Order Discharge Orders: Discharge Order (Routine); Ordered 01/15/18 Ordered By: Collin Whyte - Physicians Team Primary Care Provider: Jay Stewart Attending Provider: Collin Whyte
== END 2018-01-15 16:12 | disposition home or self-care (01) ==
LOC: PHED 17:58 → PHEDA 21:11 → PH3 22:20
PROVIDERS: ADMIT Family Medicine; ATTEND Family Medicine

== ENCOUNTER 2018-06-07 04:22 | Inpatient (IN) ==
--- NOTE | 2018-06-07 04:30 | ED ---
HPI General Chief Complaint: Abdominal Pain Stated Complaint: EVAC/Abd pain Time Seen by Provider: 06/07/18 04:25 Source: patient and EMS Mode of arrival: EMS Limitations: no limitations History of Present Illness HPI narrative: 38-year-old male presents to the emergency department by EMS transport from home for 1 day complaint of abdominal pain. Patient reports history of recurrent pancreatitis and previous necrotizing pancreatitis and diabetes. Patient states blood sugars have been fairly well controlled around 130-150. Patient denies fever or chills. Patient had no chest pain or shortness of breath. Patient has had nausea and vomiting but no hematemesis or coffee-ground emesis. Patient has noted bilious emesis. Patient had loose stools but denies any mucus or blood in his stool. Patient states due to the ongoing abdominal pain this been present since approximately 3 PM he started noticing some abdominal distention and firmness of the abdomen. No prior history of bowel obstruction or perforation. No reported history of gallbladder disease or peptic ulcer disease or gastritis. Patient does admitted to drinking one beer this afternoon. Patient typically has exacerbation of his pancreatitis associated with alcohol use. Last episode/ exacerbation of pancreatitis was 1 year ago. Patient also has history of dyslipidemia hyper diabetes HIV anxiety depression bipolar disorder schizophrenia tracheostomy and appendectomy. MD complaint: Reports abdominal pain Onset (ago): day(s) (1) Pain Consistency: constant Location: Reports diffuse and periumbilical Severity: severe Severity scale (1-10): 7 Quality: Reports aching and fullness Radiation: Reports none Migration to: Reports periumbilical; Denies no migration Relieving factors: nothing Exacerbating factors: other (alcohol) Context: Reports history of similar episodes; Denies foreign travel, possible food poisoning, sick contacts, recent antibiotic use, recent surgery/procedure and recent injury Associated symptoms: Reports nausea, vomiting and diarrhea; Denies fever, chills , constipation, dysuria, hematemesis, hematochezia, melena, hematuria, anorexia and syncope Treatments prior to arrival: Denies NSAIDs, prescription analgesics and antacids Related Data Home Medications Medication Instructions Recorded Confirmed brexpiprazole [Rexulti] 1 mg PO DAILY 01/12/18 06/07/18 iydtigo-jvk-lqstn-tenof alafen 1 tab PO DAILY 01/12/18 06/07/18 [Genvoya] escitalopram oxalate 20 mg PO DAILY 01/12/18 06/07/18 gabapentin 1 tab PO Q6HR 01/12/18 06/07/18 lamotrigine 300 mg PO DAILY 01/12/18 06/07/18 mirtazapine 30 mg PO DAILY 01/12/18 06/07/18 pantoprazole 40 mg PO DAILY 01/12/18 06/07/18 propranolol 10 mg PO TID 01/12/18 06/07/18 quetiapine 50 mg PO BID 01/12/18 06/07/18 quetiapine 300 mg PO HS 01/12/18 06/07/18 rosuvastatin 10 mg PO DAILY 01/12/18 06/07/18 sumatriptan succinate 50 mg PO Q2-4H PRN 01/12/18 06/07/18 furosemide [Lasix] 20 mg PO BID 04/24/18 06/07/18 insulin aspart U-100 [Novolog 1 sliding scale dose SUBCUT UD 04/24/18 06/07/18 U-100 Insulin aspart] insulin detemir U-100 [Levemir 20 units SUBCUT HS 04/24/18 06/07/18 U-100 Insulin] tramadol 50 mg PO BID 04/24/18 06/07/18 odckjfone-rhpdxtgl-frjlqou ala 1 tab PO DAILY 06/07/18 06/07/18 [Biktarvy] brexpiprazole [Rexulti] 1 mg PO DAILY 06/07/18 06/07/18 clonazepam 1 mg PO BID 06/07/18 06/07/18 insulin detemir U-100 [Levemir 28 unit SUBCUT QPM 06/07/18 06/07/18 U-100 Insulin] meloxicam 15 mg PO DAILY 06/07/18 06/07/18 pregabalin [Lyrica] 75 mg PO BID 06/07/18 06/07/18 tizanidine 4 mg PO HS 06/07/18 06/07/18 Previous Rx's Medication Instructions Recorded dicyclomine 20 mg PO TID #14 tab 04/24/18 ondansetron [Zofran ODT] 4 mg PO Q6-8H PRN #10 tab 04/24/18 Allergies Allergy/AdvReac Type Severity Reaction Status Date / Time naproxen Allergy Severe Vomiting Verified 06/07/18 04:28 penicillin G Allergy Severe Anaphylaxis Verified 06/07/18 04:28 Review of Systems ROS: all other systems reviewed are negative PMFSH Medical History Medical History Anxiety (Acute) Bipolar 1 disorder (Acute) Depression (Acute) Diabetes mellitus (Acute) HIV (human immunodeficiency virus infection) (Acute) High cholesterol (Acute) History of alcohol abuse (Acute) Insomnia (Acute) Pancreatitis (Acute) Schizophrenia (Acute) Tachycardia (Acute) Surgical History Surgical History History of appendectomy (Acute) Hx of tracheostomy (Acute) Social History Social History Substance History: No History of Abuse Second Hand Smoke Exposure: Yes Smoking Status: Current every day smoker Tobacco Type: E-Cigarettes How Often Do You Have a Drink Containing Alcohol: 2 to 4 times a month [facility] within the Last 8 Weeks: No Recent Out of Country Travel within the Last 8 Weeks: No Exam Narrative Exam Narrative: GENERAL: Well-nourished, well-developed patient. SKIN: Focused skin assessment warm/dry. HEAD: Normocephalic. EYES: No scleral icterus. No injection or drainage. NECK: Supple, trachea midline. No JVD or lymphadenopathy. CARDIOVASCULAR: Regular rate and rhythm without murmurs, gallops, or rubs. RESPIRATORY: Breath sounds equal bilaterally. No accessory muscle use. GASTROINTESTINAL: Abdomen soft, diffusely tender to palpation with voluntary guarding no rebound, nondistended. MUSCULOSKELETAL: No cyanosis, or edema. BACK: Nontender without obvious deformity. No CVA tenderness. Course Initial Documented Vital Signs Temperature 98.6 F 06/07/18 04:29 Pulse Rate 65 06/07/18 04:29 Respiratory Rate 18 06/07/18 04:29 Blood Pressure 135/92 H 06/07/18 04:29 Pulse Oximetry 97 06/07/18 04:29 Last Documented Vital Signs Temperature 98.6 F 06/07/18 04:29 Pulse Rate 65 06/07/18 04:29 Respiratory Rate 18 06/07/18 04:29 Blood Pressure 135/92 H 06/07/18 04:29 Pulse Oximetry 97 06/07/18 04:33 Medical Decision Making MDM Narrative Medical decision making narrative: 38-year-old male with history of recurrent pancreatitis and diabetes presents to the emergency department for complaint of worsening abdominal pain since approximately 3 PM today. Patient did drink alcohol. Patient placed on personnel monitor with IV access specimens collected and sent for resulting patient administered Protonix Zofran and one-time dose of morphine CT imaging study ordered. Lab values remarkable for random glucose 2 with normal bicarb and anion gap of potassium; lipase is elevated at 2200; CT abdomen pelvis shows some prominence at the head of the pancreas and marked on for possible pancreatitis or peptic ulcer disease. Plan will be to put patient into the hospital for bowel rest IV fluids pain management and may require GI consult. Patient was also noted to have elevated lactic acid of 2.5 patient given additional IV fluids Discussed case with on-call [facility] MD Dr Velasquez --will admit for pancreatitis and request most recent GI evaluation--- per patient has not seen pension examiner for approximately call GI Dr. this was shared with Dr. Velasquez. Medical Screen Exam Complete: Yes Emergency Medical Condition: Yes Differential Diagnosis Differential Diagnosis: Alcohol gastritis peptic ulcer disease gastroparesis pancreatitis cholecystitis choledocholithiasis SBO perforation Lab Data Result diagrams: 06/07/18 04:44 06/07/18 04:44 Lab Results 06/07/18 06/07/18 06/07/18 Range/Units 04:44 04:44 04:44 CBC w Diff Auto diff final WBC 7.4 (4.0-11.0) th/mm3 RBC 4.54 (4.50-5.90) mil/mm3 Hgb 13.8 (13.0-17.0) gm/dL Hct 40.6 (39.0-51.0) % MCV 89.4 (80.0-100.0) fL MCH 30.4 (27.0-34.0) pg MCHC 34.0 (32.0-36.0) % RDW 12.4 (11.6-17.2) % Plt Count 132 L (150-450) th/mm3 MPV 11.1 H (7.0-11.0) fL Neut % (Auto) 67.2 (16.0-70.0) % Lymph % (Auto) 22.9 (9.0-44.0) % [place] % (Auto) 7.4 (0.0-8.0) % Eos % (Auto) 2.1 (0.0-4.0) % Baso % (Auto) 0.4 (0.0-2.0) % Neut # (Auto) 5.0 (1.8-7.7) th/mm3 Lymph # (Auto) 1.7 (1.0-4.8) th/mm3 [place] # (Auto) 0.5 (0.0-0.9) th/mm3 Eos # (Auto) 0.2 (0.0-0.4) th/mm3 Baso # (Auto) 0.0 (0.0-0.2) th/mm3 WBC Differential . Differential Comment . PT 10.7 (9.8-11.6) sec INR 1.1 Ratio APTT 26.4 (23.4-31.7) sec Sodium 138 (136-145) meq/L Potassium 3.8 (3.5-5.1) meq/L Chloride 101 (98-107) meq/L Carbon Dioxide 28.9 (21.0-32.0) meq/L Anion Gap 8 (5-15) meq/L BUN 17 (7-18) mg/dL Creatinine 1.20 (0.60-1.30) mg/dL Estimated GFR 68 L (>89) mL/min POC Glucose (68-110) mg/dl Random Glucose 152 H (74-106) mg/dL Lactic Acid (0.4-2.0) mmol/L Calcium 8.7 (8.5-10.1) mg/dL Magnesium 2.5 (1.5-2.5) mg/dL Total Bilirubin 0.3 (0.2-1.0) mg/dL AST 46 H (15-37) U/L ALT 62 (12-78) U/L Alkaline Phosphatase 130 H (45-117) U/L Total Protein 7.6 (6.4-8.2) g/dL Albumin 3.5 (3.4-5.0) g/dL Lipase 2218 H (73-393) U/L 06/07/18 06/07/18 Range/Units 04:50 05:00 CBC w Diff WBC (4.0-11.0) th/mm3 RBC (4.50-5.90) mil/mm3 Hgb (13.0-17.0) gm/dL Hct (39.0-51.0) % MCV (80.0-100.0) fL MCH (27.0-34.0) pg MCHC (32.0-36.0) % RDW (11.6-17.2) % Plt Count (150-450) th/mm3 MPV (7.0-11.0) fL Neut % (Auto) (16.0-70.0) % Lymph % (Auto) (9.0-44.0) % [place] % (Auto) (0.0-8.0) % Eos % (Auto) (0.0-4.0) % Baso % (Auto) (0.0-2.0) % Neut # (Auto) (1.8-7.7) th/mm3 Lymph # (Auto) (1.0-4.8) th/mm3 [place] # (Auto) (0.0-0.9) th/mm3 Eos # (Auto) (0.0-0.4) th/mm3 Baso # (Auto) (0.0-0.2) th/mm3 WBC Differential Differential Comment PT (9.8-11.6) sec INR Ratio APTT (23.4-31.7) sec Sodium (136-145) meq/L Potassium (3.5-5.1) meq/L Chloride (98-107) meq/L Carbon Dioxide (21.0-32.0) meq/L Anion Gap (5-15) meq/L BUN (7-18) mg/dL Creatinine (0.60-1.30) mg/dL Estimated GFR (>89) mL/min POC Glucose 146 H (68-110) mg/dl Random Glucose (74-106) mg/dL Lactic Acid 2.5 H (0.4-2.0) mmol/L Calcium (8.5-10.1) mg/dL Magnesium (1.5-2.5) mg/dL Total Bilirubin (0.2-1.0) mg/dL AST (15-37) U/L ALT (12-78) U/L Alkaline Phosphatase (45-117) U/L Total Protein (6.4-8.2) g/dL Albumin (3.4-5.0) g/dL Lipase (73-393) U/L Imaging Data Radiologist's impression: Abdomen/Pelvis CT 06/07/18 04:33 CONCLUSION: 1. Induration seen around the proximal duodenum and pancreatic head region. It is uncertain if this originates from the duodenum or the pancreatic head is related to peptic disease or pancreatitis. The patient does appear to stable pseudocyst anterior to the pancreatic body. 2. Hepatic steatosis. Chest X-Ray 06/07/18 04:33 CONCLUSION: Cardiomegaly. Prominence of interstitium which may represent pulmonary venous hypertension or mild edema versus underlying chronic interstitial disease. Discharge Plan Discharge Disposition Patient Disposition: ED Admit(ED Internal Use Only) Discharge Condition Condition: Stable Discharge Order Discharge Orders: ED Use Only Admit Order (Routine); Ordered 06/07/18 Ordered By: Ashley Serna Discharge Details Diagnosis: Pancreatitis Physicians Team ED Provider: Ashley Serna Primary Care Provider: Jay Stewart Attending Provider: Nabor Velasquez Other Providers: Zurdo Gutiérrez Status ED Status: Admitted Patient
[2018-06-07] MEDS ORDERED: Famotidine PF Inj 20 MG/2 ML Vial IV.PUSH ONE (04:33)
[2018-06-07] MEDS ORDERED: Sod Chloride 0.9% Inj 1,000 ML IV.SIG ONE (04:33)
[2018-06-07 04:50] LABS: Baso % (Auto) 0.4 % (0.0-2.0); Eos # (Auto) 0.2 th/mm3 (0.0-0.4); Eos % (Auto) 2.1 % (0.0-4.0); Hematocrit 40.6 % (39.0-51.0); Hemoglobin 13.8 gm/dL (13.0-17.0); Lymph # (Auto) 1.7 th/mm3 (1.0-4.8); Lymph % (Auto) 22.9 % (9.0-44.0); Mean Corpuscular Hemoglobin 30.4 pg (27.0-34.0); Mean Corpuscular Volume 89.4 fL (80.0-100.0); Mean Platelet Volume 11.1 fL (7.0-11.0); Mono # (Auto) 0.5 th/mm3 (0.0-0.9); Mono % (Auto) 7.4 % (0.0-8.0); Neut % (Auto) 67.2 % (16.0-70.0); Platelet Count 132 th/mm3 (150-450); Red Blood Count 4.54 mil/mm3 (4.50-5.90); Red Cell Distribution Width 12.4 % (11.6-17.2); White Blood Count 7.4 th/mm3 (4.0-11.0)
[2018-06-07 05:00] LABS: Chloride 101 meq/L (98-107); Potassium 3.8 meq/L (3.5-5.1); Sodium 138 meq/L (136-145)
[2018-06-07 05:03] LABS: Calcium 8.7 mg/dL (8.5-10.1)
[2018-06-07 05:04] LABS: Albumin 3.5 g/dL (3.4-5.0); Anion Gap 8 meq/L (5-15); Blood Urea Nitrogen 17 mg/dL (7-18); Carbon Dioxide 28.9 meq/L (21.0-32.0); Glucose,Random 152 mg/dL (74-106); Magnesium 2.5 mg/dL (1.5-2.5)
[2018-06-07 05:06] LABS: Activated Partial Thrombo Time 26.4 sec (23.4-31.7); Alanine Aminotransferase 62 U/L (12-78); Aspartate Aminotransferase 46 U/L (15-37); INR 1.1 Ratio; Prothrombin Time 10.7 sec (9.8-11.6)
[2018-06-07] MEDS ORDERED: Morphine Inj 4 MG/ML Vial IV.PUSH ONE (05:06)
[2018-06-07 05:07] LABS: Glomerular Filtration Rate 68 mL/min (>89)
[2018-06-07 05:08] LABS: Total Protein 7.6 g/dL (6.4-8.2)
[2018-06-07 05:09] LABS: Alkaline Phosphatase 130 U/L (45-117); Lipase 2218 U/L (73-393)
--- NOTE | 2018-06-07 05:26 | XR ---
EXAM DATE: 06/07/2018 4:58 AM EST AGE/SEX: 38 years / Male INDICATIONS: Nausea, vomting, diarrhea, abdominal pain, shortness of breath. CLINICAL DATA: This is the patient's initial encounter. Patient reports that signs and symptoms have been present for 1 day and indicates a pain score of 10/10. MEDICAL/SURGICAL HISTORY: Hypertension. Diabetes mellitus type II. Pancreatitis. Smoker. HIV . Schizophrenia. Appendectomy. COMPARISON: [facility], CHEST 1V SINGLE AP, 01/12/2018. . FINDINGS: The cardiac silhouette is enlarged. The lungs demonstrate mild prominence of interstitium. Focal alve olar density is not clearly seen. CONCLUSION: Cardiomegaly. Prominence of interstitium which may represent pulmonary venous hypertension or mild edema versus und erlying chronic interstitial disease. Electronically signed by: Myles Dominguez MD Board Certified Radiologist 06/07/2018 5:25 AM EST
[2018-06-07] MEDS ORDERED: HYDROmorphone PF Inj 2 MG/ML Vial IV.PUSH ONE (05:49)
--- NOTE | 2018-06-07 05:59 | CT ---
EXAM DATE: 06/07/2018 5:40 AM EST AGE/SEX: 38 years / Male INDICATIONS: Abdominal pain. CLINICAL DATA: This is the patient's initial encounter. Patient reports that signs and symptoms have been present for 1 day and indicates a pain score of 8/10. MEDICAL/SURGICAL HISTORY: . Anxiety. Bipolar disorder. Depression. Diabetes mellitus. High chol esterol. Alcohol abuse. HIV. Insomnia. Pancreatitis. Tachycardia. Appendectomy. Tracheostomy. ORAL CONTRAST: No oral contrast ingested. RADIATION DOSE: 18.83 CTDI (mGy) COMPARISON: [facility] [place] ABDOMEN & PELVIS W CONTRAST, 04/24/2018. . TECHNIQUE: Multiple contiguous axial images were obtained through the abdomen and pelvis following b olus infusion of 80 ml Omnipaque 350 (iohexol) nonionic water-soluble contrast as a single exam dos e. No oral contrast ingested. Using automated exposure control and adjustment of the mA and/or kV ac cording to patient size, radiation dose was kept as low as reasonably achievable to obtain optimal di agnostic quality images. DICOM format image data is available electronically for review and comparis on. FINDINGS: Lower Lungs: The visualized lower lungs are clear. Liver: There is diffuse decreased attenuation to the liver. No focal hepatic lesions are seen. The ga llbladder is unremarkable. Spleen: Homogeneous density without enlargement. Pancreas: There is induration in the right upper quadrant surrounding the duodenum and pancreatic he ad. Its uncertain the etiology is from the duodenum or the pancreas. There is a stable 3.4 cm low-den sity mass at the anterior pancreatic body likely related to a pseudocyst. Kidneys: Normal in size and shape. No evidence of mass or hydronephrosis. Adrenal Glands: Unremarkable. Aorta: The aorta and proximal iliac vessels are grossly unremarkable without aneurysmal dilation. Bowel/Mesentery: Again noted is the induration around the duodenum and pancreatic head region. The b owel is otherwise unremarkable. Abdominal Wall: Intact. Retroperitoneum: No evidence of adenopathy in the retrocrural, para-aortic, or deep pelvic regions. Bladder: Contours are smooth. Reproductive Organs: No abnormal masses or calcifications seen. Inguinal: The inguinal region is unremarkable without evidence of adenopathy. Bony Structures: There is a twila seen in the left femur. CONCLUSION: 1. Induration seen around the proximal duodenum and pancreatic head region. It is uncertain if this originates from the duodenum or the pancreatic head is related to peptic disease or pancreatitis. The patient does appear to stable pseudocyst anterior to the pancreatic body. 2. Hepatic steatosis. Electronically signed by: Myles Dominguez MD Board Certified Radiologist 06/07/2018 5:58 AM EST
[2018-06-07] MEDS ORDERED: Dextrose 50% in Water 50 ML Vial IV.PUSH PRN (06:41)
[2018-06-07] MEDS ORDERED: Acetaminophen 325 MG Tablet PO PRN (06:41)
[2018-06-07] MEDS ORDERED: Bisacodyl 10 MG Supp RECTAL PRN (06:41)
[2018-06-07] MEDS ORDERED: Sod Chloride 0.9% Inj 1,000 ML IV.CONT SCH (06:45)
[2018-06-07] MEDS: Pantoprazole Inj 40 MG Vial IV.PUSH SCH ×2 (07:56→18:16)
[2018-06-07] MEDS: Sod Chloride 0.9% Inj 1,000 ML IV.CONT SCH ×4 (07:56→23:07)
[2018-06-07] MEDS ORDERED: Morphine Inj 4 MG/ML Vial IV.PUSH PRN (08:30)
[2018-06-07] MEDS: Insulin NovoLOG Aspart Correctional Sugar Inj SQ SCH ×4 (09:16→22:23)
--- NOTE | 2018-06-07 10:17 | P.HP ---
History of Present Illness Primary Care Physician: Jay Stewart Chief Complaint: Abdominal pain History of Present Illness: This is a 38-year-old male patient with a known medical history of alcohol abuse with recurrent pancreatitis, subsequent diabetes, hyperlipidemia, HIV presented to the ED with complaints of abdominal pain. Patient states that yesterday afternoon after having a beer he complains of abdominal pain that was located in his medic epigastric area radiated to his left upper quadrant and is now diffusely present. He admits to 4 bouts of vomiting yesterday and inability to eat without feeling nauseous and vomiting. He also admits to some diarrhea yesterday as well. He denies any recent fever, chills, headache, chest pain. He does admit to a history of necrotizing pancreatitis, was hospitalized a month in January 2017. Since that time patient has limited his alcohol use, states he only drinks 1 beer every month at this point. Patient was last hospitalized earlier this year for alcohol intoxication as well as acute pancreatitis exacerbation. Patient does have a history of HIV, states this is well controlled. Lipase level over 2000 upon presentation. - Diagnosis (1) Pancreatitis Inpatient Certification: I certify that the inpatient services were ordered in accordance with Medicare regulations governing the order. This includes certification that hospital inpatient services are reasonable and necessary and in the case of services not specified as inpatient-only under 42 CFR 419.22(n), that they are appropriately provided as inpatient services in accordance to with the 2-midnight benchmark under 43 CFR 412.3(e) Estimated Total Length of Stay (Days): 3 Plans for Post Hospital Care: Not yet determined Review of Systems All other systems reviewed negative except as stated in HPI [facility] - History History Provided By: Patient - Medical History Medical History: Medical History (Last Reviewed 06/07/18 @ 10:23 by Ely Bhatia) Anxiety Bipolar 1 disorder Depression Diabetes mellitus HIV (human immunodeficiency virus infection) High cholesterol History of alcohol abuse Insomnia Pancreatitis Schizophrenia Tachycardia - Surgical History Surgical History: Surgical History (Last Reviewed 06/07/18 @ 10:23 by Ely Bhatia) History of appendectomy Hx of tracheostomy - Family History Family History: Family History (Last Updated 06/07/18 @ 10:23 by Ely Bhatia) Other Family history in first degree relatives is unremarkable - Tobacco History Second Hand Smoke Exposure: No Tobacco Use In Past 30 Days: Yes Smoking Status: Light tobacco smoker Tobacco Type: E-Cigarettes - Alcohol History How Often Do You Have a Drink Containing Alcohol: Monthly or less - Substance Use History Substance History: Past History - Substance Use Type Alcohol Status: Sustained Remission Route Used: By Mouth Reason for Use: Feels Good - Travel History Recent Travel in the [place] Within the Last 8 Weeks: No Recent Travel Out of the Country Within the Last 8 Weeks: No - Immunization History Tetanus Immunization: <5 Years Hx Influenza Vaccine This Season: Yes Medications and Allergies Active Medications: Active Medications Acetaminophen (Tylenol) 650 mg PO Q4H PRN PRN Reason: Temp > 100.4 Al Hydroxide/Mg Hydroxide (Milk Of Magnesia Liq) 30 ml PO Q12H PRN PRN Reason: Mild Constipation Bisacodyl (Dulcolax Supp) 10 mg RECTAL DAILY PRN PRN Reason: SEVERE CONSITIPATION Dextrose (D50w Vial) 50 ml IV.PUSH UNSCH PRN PRN Reason: PER HYPOGLYCEMIA PROTOCOL Glucagon (Glucagon Inj) 1 mg OTHER PRN PRN PRN Reason: for Hypoglycemia Protocol Sodium Chloride (Ns Inj) 1,000 mls @ 200 mls/hr IV.CONT .Q5H JOSE GUADALUPE Last Admin: 06/07/18 07:56 Dose: 200 mls/hr Insulin Aspart (Novolog Insulin Correctional Sugar Inj) 0 unit SQ ACHS [facility]; Protocol Last Admin: 06/07/18 09:16 Dose: Not Given Lactulose (Lactulose Liq) 30 ml PO DAILY PRN PRN Reason: SEVERE CONSITIPATION Morphine Sulfate (Morphine Inj) 4 mg IV.PUSH Q4H PRN PRN Reason: ABDOMINAL PAIN Last Admin: 06/07/18 08:57 Dose: 4 mg Ondansetron HCl (Zofran Inj) 4 mg IV.PUSH Q6H PRN PRN Reason: NAUSEA OR VOMITING Last Admin: 06/07/18 09:46 Dose: 4 mg Pantoprazole Sodium (Protonix Inj) 40 mg IV.PUSH Q12H JOSE GUADALUPE Last Admin: 06/07/18 07:56 Dose: 40 mg Sennosides (Senokot) 17.2 mg PO Q12H PRN PRN Reason: Moderate Constipation Sodium Chloride (Ns Flush) 2 ml IV.FLUSH PRN PRN PRN Reason: FLUSH AFTER USING IV ACCESS Sodium Chloride (Ns Flush) 2 ml IV.FLUSH BID JOSE GUADALUPE Sodium Chloride (Ns Flush) 2 ml IV.FLUSH PRN PRN PRN Reason: FLUSH AFTER USING IV ACCESS Allergies Allergy/AdvReac Type Severity Reaction Status Date / Time naproxen Allergy Severe Vomiting Verified 06/07/18 04:28 penicillin G Allergy Severe Anaphylaxis Verified 06/07/18 04:28 Home Medications Medication Instructions Recorded Confirmed Type brexpiprazole [Rexulti] 1 mg PO DAILY 01/12/18 06/07/18 History vklxbet-kzq-eykmy-tenof alafen 1 tab PO DAILY 01/12/18 06/07/18 History [Genvoya] escitalopram oxalate 20 mg PO DAILY 01/12/18 06/07/18 History gabapentin 1 tab PO Q6HR 01/12/18 06/07/18 History lamotrigine 300 mg PO DAILY 01/12/18 06/07/18 History mirtazapine 30 mg PO DAILY 01/12/18 06/07/18 History pantoprazole 40 mg PO DAILY 01/12/18 06/07/18 History propranolol 10 mg PO TID 01/12/18 06/07/18 History quetiapine 50 mg PO BID 01/12/18 06/07/18 History quetiapine 300 mg PO HS 01/12/18 06/07/18 History rosuvastatin 10 mg PO DAILY 01/12/18 06/07/18 History sumatriptan succinate 50 mg PO Q2-4H PRN 01/12/18 06/07/18 History furosemide [Lasix] 20 mg PO BID 04/24/18 06/07/18 History insulin aspart U-100 [Novolog 1 sliding scale dose SUBCUT UD 04/24/18 06/07/18 History U-100 Insulin aspart] insulin detemir U-100 [Levemir 20 units SUBCUT HS 04/24/18 06/07/18 History U-100 Insulin] tramadol 50 mg PO BID 04/24/18 06/07/18 History kqtygxzfw-nbsriqoc-lmqjijb ala 1 tab PO DAILY 06/07/18 06/07/18 History [Biktarvy] brexpiprazole [Rexulti] 1 mg PO DAILY 06/07/18 06/07/18 History clonazepam 1 mg PO BID 06/07/18 06/07/18 History insulin detemir U-100 [Levemir 28 unit SUBCUT QPM 06/07/18 06/07/18 History U-100 Insulin] meloxicam 15 mg PO DAILY 06/07/18 06/07/18 History pregabalin [Lyrica] 75 mg PO BID 06/07/18 06/07/18 History tizanidine 4 mg PO HS 06/07/18 06/07/18 History Exam Vital signs: Vital Signs 06/07/18 04:29 06/07/18 04:33 06/07/18 07:44 Temperature 98.6 F Pulse Rate 65 72 Respiratory Rate 18 18 Blood Pressure 135/92 H 135/74 Pulse Oximetry 97 97 97 06/07/18 08:00 06/07/18 09:47 Temperature 98 F Pulse Rate 59 L Respiratory Rate 20 18 Blood Pressure 146/85 H Pulse Oximetry 93 L Intake & Output 06/06/18 06/07/18 06/07/18 18:59 06:59 18:59 Intake Total 1000 / 1000 Balance 1000 / 1000 Weight 90.718 kg Intake: IV 1000 / 1000 NS Inj 1,000 ML @ Wide Open IV. 1000 / 1000 SIG BOLUS ONE Rx#:[id number] Other: # Voids 1 Narrative: GENERAL: Well-developed, well-nourished patient with apparent abdominal pain SKIN: Warm and dry. No rash. HEAD: Normocephalic. Atraumatic. EYES: Pupils equal and round. No scleral icterus. No injection or drainage. ENT: No nasal bleeding or discharge. Mucous membranes pink and moist. NECK: Supple. Trachea midline. CARDIOVASCULAR: Regular rate and rhythm. S1, S2 noted. No murmur appreciated. RESPIRATORY: No accessory muscle use. Clear to auscultation. Breath sounds equal bilaterally. GASTROINTESTINAL: Abdomen soft, non-tender, nondistended. Normoactive bowel sounds x4. MUSCULOSKELETAL: No obvious deformities. Extremities without clubbing, cyanosis , or edema. NEUROLOGICAL: Awake and alert. No obvious cranial nerve deficits. Motor grossly within normal limits. 5/5 muscle strength in bilateral upper and lower extremities. Normal speech. PSYCHIATRIC: Appropriate mood and affect; insight and judgment normal. Results - Labs CBC & Chem 7: 06/07/18 04:44 06/07/18 04:44 Labs: Laboratory Results - last 24 hr 06/07/18 06/07/18 06/07/18 04:44 04:44 04:44 CBC w Diff Auto diff final WBC 7.4 RBC 4.54 Hgb 13.8 Hct 40.6 MCV 89.4 MCH 30.4 MCHC 34.0 RDW 12.4 Plt Count 132 L MPV 11.1 H Neut % (Auto) 67.2 Lymph % (Auto) 22.9 [place] % (Auto) 7.4 Eos % (Auto) 2.1 Baso % (Auto) 0.4 Neut # (Auto) 5.0 Lymph # (Auto) 1.7 [place] # (Auto) 0.5 Eos # (Auto) 0.2 Baso # (Auto) 0.0 WBC Differential . Differential Comment . PT 10.7 INR 1.1 APTT 26.4 Sodium 138 Potassium 3.8 Chloride 101 Carbon Dioxide 28.9 Anion Gap 8 BUN 17 Creatinine 1.20 Estimated GFR 68 L POC Glucose Random Glucose 152 H Lactic Acid Calcium 8.7 Magnesium 2.5 Total Bilirubin 0.3 AST 46 H ALT 62 Alkaline Phosphatase 130 H Total Protein 7.6 Albumin 3.5 Lipase 2218 H 06/07/18 06/07/18 04:50 05:00 CBC w Diff WBC RBC Hgb Hct MCV MCH MCHC RDW Plt Count MPV Neut % (Auto) Lymph % (Auto) [place] % (Auto) Eos % (Auto) Baso % (Auto) Neut # (Auto) Lymph # (Auto) [place] # (Auto) Eos # (Auto) Baso # (Auto) WBC Differential Differential Comment PT INR APTT Sodium Potassium Chloride Carbon Dioxide Anion Gap BUN Creatinine Estimated GFR POC Glucose 146 H Random Glucose Lactic Acid 2.5 H Calcium Magnesium Total Bilirubin AST ALT Alkaline Phosphatase Total Protein Albumin Lipase - Imaging Impressions Abdomen/Pelvis CT 06/07/18 04:33 CONCLUSION: 1. Induration seen around the proximal duodenum and pancreatic head region. It is uncertain if this originates from the duodenum or the pancreatic head is related to peptic disease or pancreatitis. The patient does appear to stable pseudocyst anterior to the pancreatic body. 2. Hepatic steatosis. Chest X-Ray 06/07/18 04:33 CONCLUSION: Cardiomegaly. Prominence of interstitium which may represent pulmonary venous hypertension or mild edema versus underlying chronic interstitial disease. Caprini VTE Risk Assessment Caprini VTE Risk Assessment: No/Low Risk (score <= 1) Caprini Risk Assessment Model: Point Value = 1 Point Value = 2 Point Value = 3 Point Value = 5 Age 41-60 Minor surgery BMI > 25 kg/m2 Swollen legs Varicose veins or History of unexplained or recurrent spontaneous Oral contraceptives or hormone replacement Sepsis (< 1 month) Serious lung disease, including pneumonia (< 1 month) Abnormal pulmonary function Acute myocardial infarction Congestive heart failure (< 1 month) History of inflammatory bowel disease Medical patient at bed rest Age 61-74 Arthroscopic surgery Major open surgery (> 45 min) Laparoscopic surgery (> 45 min) Malignancy Confined to bed (> 72 hours) Immobilizing plaster cast Central venous access Age >= 75 History of VTE Family history of VTE Factor V Leiden Prothrombin [id number] Lupus anticoagulant Anticardiolipin antibodies Elevated serum homocysteine Heparin-induced thrombocytopenia Other congenital or acquired thrombophilia Stroke (< 1 month) Elective arthroplasty Hip, pelvis, or leg fracture Acute spinal cord injury (< 1 month) Prophylaxis Regimen: Total Risk Factor Score Risk Level Prophylaxis Regimen 0-1 Low Early ambulation 2 Moderate Order ONE of the following: *Sequential Compression Device (SCD) *Heparin 5000 units SQ BID 3-4 Higher Order ONE of the following medications: *Heparin 5000 units SQ TID *Enoxaparin/Lovenox 40 mg SQ daily (WT < 150 kg, CrCl > 30 mL/min) *Enoxaparin/Lovenox 30 mg SQ daily (WT < 150 kg, CrCl > 10-29 mL/min) *Enoxaparin/Lovenox 30 mg SQ BID (WT < 150 kg, CrCl > 30 mL/min) AND/OR *Sequential Compression Device (SCD) 5 or more Highest Order ONE of the following medications: *Heparin 5000 units SQ TID (Preferred with Epidurals) *Enoxaparin/Lovenox 40 mg SQ daily (WT < 150 kg, CrCl > 30 mL/min) *Enoxaparin/Lovenox 30 mg SQ daily (WT < 150 kg, CrCl > 10-29 mL/min) *Enoxaparin/Lovenox 30 mg SQ BID (WT < 150 kg, CrCl > 30 mL/min) AND *Sequential Compression Device (SCD) Assessment and Plan - Assessment (1) Pancreatitis Code(s): K85.90 - Acute pancreatitis without necrosis or infection, unspecified Status: Acute - Plan This is a 38-year-old male patient with Acute pancreatitis History of necrotizing pancreatitis -Patient presents with a 1 day history of abdominal pain, nausea and vomiting. -CT abdomen/pelvis reviewed showing pancreatitis and a stable pseudocyst of the anterior of the pancreatic body. -Lipase 2218. CBC and BMP reviewed, essentially unremarkable. -Patient placed on IV narcotics as needed. -N.p.o. for now. Hold home medications. -Ensure hydration, continue IV fluids 200 ml/hr. -Zofran as needed for nausea. -Protonix added. Will continue. Diabetes -ACCU check ACHS, sliding scale. Monitor blood sugar trends. Monitor for hpoglycemia. History of alcohol abuse -Encouraged cessation. Patient drinks 1 alcoholic drink a month per report. HIV -Patient states his HIV is undetectable. Follows outpatient. Stable. Hyperlipidemia, chronic -Continue statin. DVT prophylaxis: Ambulation. (1) Pancreatitis Qualifiers: Chronicity: acute Pancreatitis type: alcohol induced Acute pancreatitis complication: unspecified Qualified Code(s): K85.20 - Alcohol induced acute pancreatitis without necrosis or infection
[2018-06-07] MEDS: HYDROmorphone PF Inj 2 MG/ML Vial IV.SIG PRN ×4 (11:14→22:24)
[2018-06-07 16:42] LABS: Bilirubin,Urine Negative (Negative); Clarity,Urine Clear (Clear); Color,Urine Yellow (Yellw/Straw); Glucose,Urine (UA) Negative (Negative); Leukocyte Esterase,Urine Negative (Negative); Nitrite,Urine Negative (Negative); PH,Urine 8.5 (5.0-8.5); Urobilinogen,Urine 0.2 mg/dL (Less than 2)
[2018-06-07 16:58] LABS: Amorphous Sediment,Urine Few /hpf; RBC,Urine 0-3 /hpf (0-3); Squamous Epithelial Cell,Urine 0-5 /hpf (0-5)
[2018-06-08] MEDS: HYDROmorphone PF Inj 2 MG/ML Vial IV.SIG PRN ×6 (02:26→22:28)
[2018-06-08] MEDS: Pantoprazole Inj 40 MG Vial IV.PUSH SCH ×2 (06:00→18:40)
[2018-06-08] MEDS: Sod Chloride 0.9% Inj 1,000 ML IV.CONT SCH ×5 (06:00→23:52)
[2018-06-08 07:49] LABS: Baso % (Auto) 0.3 % (0.0-2.0); Eos # (Auto) 0.1 th/mm3 (0.0-0.4); Eos % (Auto) 1.1 % (0.0-4.0); Hemoglobin 11.8 gm/dL (13.0-17.0); Lymph # (Auto) 1.3 th/mm3 (1.0-4.8); Lymph % (Auto) 18.8 % (9.0-44.0); Mean Corpuscular HGB Conc 33.5 % (32.0-36.0); Mean Corpuscular Hemoglobin 30.7 pg (27.0-34.0); Mean Corpuscular Volume 91.6 fL (80.0-100.0); Mean Platelet Volume 10.2 fL (7.0-11.0); Mono # (Auto) 0.6 th/mm3 (0.0-0.9); Mono % (Auto) 9.2 % (0.0-8.0); Neut # (Auto) 4.9 th/mm3 (1.8-7.7); Neut % (Auto) 70.6 % (16.0-70.0); Platelet Count 107 th/mm3 (150-450); Red Blood Count 3.83 mil/mm3 (4.50-5.90); Red Cell Distribution Width 12.8 % (11.6-17.2); White Blood Count 6.9 th/mm3 (4.0-11.0)
[2018-06-08 08:09] LABS: Chloride 105 meq/L (98-107); Potassium 3.4 meq/L (3.5-5.1); Sodium 139 meq/L (136-145)
[2018-06-08] MEDS: Insulin NovoLOG Aspart Correctional Sugar Inj SQ SCH ×4 (08:36→21:32)
[2018-06-08 08:38] LABS: Alanine Aminotransferase 42 U/L (12-78); Albumin 3.4 g/dL (3.4-5.0); Alkaline Phosphatase 118 U/L (45-117); Anion Gap 5 meq/L (5-15); Aspartate Aminotransferase 29 U/L (15-37); Blood Urea Nitrogen 14 mg/dL (7-18); Calcium 7.8 mg/dL (8.5-10.1); Carbon Dioxide 28.6 meq/L (21.0-32.0); Glomerular Filtration Rate Greater Than 89 mL/min (>89); Glucose,Random 160 mg/dL (74-106); Total Protein 7.1 g/dL (6.4-8.2)
--- NOTE | 2018-06-08 10:47 | P.PNIM ---
Subjective Interval history: Follow-up acute pancreatitis. Patient seen and examined, lying in bed with continued complaints of abdominal pain. He has been ambulating well. Has been drinking minimal liquids, states that the pain still is continued. We will continue IV fluids and pain control. Lipase trending down. Vital signs stable. Afebrile. Physical Exam Vital signs: Vital Signs 06/07/18 11:49 06/07/18 12:00 06/07/18 15:46 Temperature 98.1 F Pulse Rate 67 Respiratory Rate 16 20 16 Blood Pressure 134/86 Pulse Oximetry 91 L 06/07/18 16:00 06/07/18 20:00 06/08/18 00:00 Temperature 98.8 F 98.7 F 98.0 F Pulse Rate 52 L 75 84 Respiratory Rate 20 17 18 Blood Pressure 144/78 H 133/76 130/70 Pulse Oximetry 92 L 93 L 96 06/08/18 07:44 06/08/18 08:00 Temperature 98.1 F Pulse Rate 69 Respiratory Rate 17 20 Blood Pressure 116/64 Pulse Oximetry 92 L Intake & Output 06/07/18 06/08/18 06/08/18 18:59 06:59 18:59 Intake Total 2150 / 2150 1999 1000 / 1000 Output Total 150 / 150 Balance 1999 1000 / 1000 Intake: IV 1999 1000 / 1000 NS Inj 1,000 ML @ 200 mls/hr IV 1999 1000 / 1000 .CONT .Q5H JOSE GUADALUPE Rx#:[id number] Oral 150 / 150 Output: Urine 150 / 150 Other: # Voids 1 Narrative: GENERAL: Well-developed, well-nourished patient with apparent abdominal pain SKIN: Warm and dry. No rash. HEAD: Normocephalic. Atraumatic. EYES: Pupils equal and round. No scleral icterus. No injection or drainage. ENT: No nasal bleeding or discharge. Mucous membranes pink and moist. NECK: Supple. Trachea midline. CARDIOVASCULAR: Regular rate and rhythm. S1, S2 noted. No murmur appreciated. RESPIRATORY: No accessory muscle use. Clear to auscultation. Breath sounds equal bilaterally. GASTROINTESTINAL: Abdomen soft, nondistended. Normoactive bowel sounds x4. Tenderness to palpation bilateral mid abdomen. MUSCULOSKELETAL: No obvious deformities. Extremities without clubbing, cyanosis , or edema. NEUROLOGICAL: Awake and alert. No obvious cranial nerve deficits. Motor grossly within normal limits. 5/5 muscle strength in bilateral upper and lower extremities. Normal speech. PSYCHIATRIC: Appropriate mood and affect; insight and judgment normal. Results - Labs CBC & Chem 7: 06/08/18 07:25 06/08/18 07:25 Laboratory Results - last 24 hr 06/07/18 06/07/18 06/07/18 11:18 16:29 17:19 CBC w Diff WBC RBC Hgb Hct MCV MCH MCHC RDW Plt Count MPV Neut % (Auto) Lymph % (Auto) [place] % (Auto) Eos % (Auto) Baso % (Auto) Neut # (Auto) Lymph # (Auto) [place] # (Auto) Eos # (Auto) Baso # (Auto) WBC Differential Differential Comment Sodium Potassium Chloride Carbon Dioxide Anion Gap BUN Creatinine Estimated GFR POC Glucose 144 H 124 H Random Glucose Calcium Total Bilirubin AST ALT Alkaline Phosphatase Total Protein Albumin Lipase Ur Collection Type Clean catch Urine Color Yellow Urine Clarity Clear Urine pH 8.5 Ur Specific [place] 1.010 Urine Protein Trace Urine Glucose (UA) Negative Urine Ketones Negative Urine Occult Blood Negative Urine Nitrate Negative Urine Bilirubin Negative Urine Urobilinogen 0.2 Ur Leukocyte Esterase Negative Urine RBC 0-3 Ur Squamous Epith Cells 0-5 Amorphous Sediment Few H Micro UA Comment Culture not ind Ur Microscopic Review Microscopic reviewed Urine Culture Comments Culture not ind 06/07/18 06/08/18 06/08/18 21:30 07:25 07:25 CBC w Diff Auto diff final WBC 6.9 RBC 3.83 L Hgb 11.8 L D Hct 35.0 L MCV 91.6 MCH 30.7 MCHC 33.5 RDW 12.8 Plt Count 107 L MPV 10.2 Neut % (Auto) 70.6 H Lymph % (Auto) 18.8 [place] % (Auto) 9.2 H Eos % (Auto) 1.1 Baso % (Auto) 0.3 Neut # (Auto) 4.9 Lymph # (Auto) 1.3 [place] # (Auto) 0.6 Eos # (Auto) 0.1 Baso # (Auto) 0.0 WBC Differential . Differential Comment . Sodium 139 Potassium 3.4 L Chloride 105 Carbon Dioxide 28.6 Anion Gap 5 BUN 14 Creatinine 0.85 Estimated GFR Greater than 89 POC Glucose 166 H Random Glucose 160 H Calcium 7.8 L D Total Bilirubin 0.4 AST 29 ALT 42 Alkaline Phosphatase 118 H Total Protein 7.1 Albumin 3.4 Lipase Ur Collection Type Urine Color Urine Clarity Urine pH Ur Specific [place] Urine Protein Urine Glucose (UA) Urine Ketones Urine Occult Blood Urine Nitrate Urine Bilirubin Urine Urobilinogen Ur Leukocyte Esterase Urine RBC Ur Squamous Epith Cells Amorphous Sediment Micro UA Comment Ur Microscopic Review Urine Culture Comments 06/08/18 06/08/18 07:25 07:48 CBC w Diff WBC RBC Hgb Hct MCV MCH MCHC RDW Plt Count MPV Neut % (Auto) Lymph % (Auto) [place] % (Auto) Eos % (Auto) Baso % (Auto) Neut # (Auto) Lymph # (Auto) [place] # (Auto) Eos # (Auto) Baso # (Auto) WBC Differential Differential Comment Sodium Potassium Chloride Carbon Dioxide Anion Gap BUN Creatinine Estimated GFR POC Glucose 149 H Random Glucose Calcium Total Bilirubin AST ALT Alkaline Phosphatase Total Protein Albumin Lipase 759 H Ur Collection Type Urine Color Urine Clarity Urine pH Ur Specific [place] Urine Protein Urine Glucose (UA) Urine Ketones Urine Occult Blood Urine Nitrate Urine Bilirubin Urine Urobilinogen Ur Leukocyte Esterase Urine RBC Ur Squamous Epith Cells Amorphous Sediment Micro UA Comment Ur Microscopic Review Urine Culture Comments Assessment and Plan - Assessment (1) Pancreatitis Code(s): K85.90 - Acute pancreatitis without necrosis or infection, unspecified Status: Acute - Plan This is a 38-year-old male patient with Acute pancreatitis History of necrotizing pancreatitis -Patient presents with a 1 day history of abdominal pain, nausea and vomiting. -CT abdomen/pelvis reviewed showing pancreatitis and a stable pseudocyst of the anterior of the pancreatic body. -Lipase 2218. Improving today. CBC and BMP reviewed, essentially unremarkable. -Patient placed on IV narcotics as needed. -Clear liquid diet as tolerated. Has not been tolerating very well overnight. We will continue hold home medications. -Ensure hydration, continue IV fluids. -Zofran as needed for nausea. -Will continue Protonix. Diabetes -ACCU check ACHS, sliding scale. Monitor blood sugar trends. Monitor for hypoglycemia. History of alcohol abuse -Encouraged cessation. Patient drinks 1 alcoholic drink a month per report. HIV -Patient states his HIV is undetectable. Follows outpatient. Stable. Hyperlipidemia, chronic -Continue statin. DVT prophylaxis: Ambulation. Discharge Planning: Await clinical improvement (1) Pancreatitis Qualifiers: Chronicity: acute Pancreatitis type: alcohol induced Acute pancreatitis complication: unspecified Qualified Code(s): K85.20 - Alcohol induced acute pancreatitis without necrosis or infection
[2018-06-08] MEDS: Propranolol 10 MG Tablet PO SCH ×2 (12:54→17:02)
[2018-06-08] MEDS: clonazePAM 1 MG Tablet PO SCH ×2 (12:55→21:24)
[2018-06-08] MEDS: Gabapentin 300 MG Capsule PO SCH ×2 (12:55→17:01)
[2018-06-08] MEDS: Mirtazapine 15 MG Tablet PO SCH (12:57)
[2018-06-08] MEDS: lamoTRIgine 100 MG Tablet PO SCH (12:57)
[2018-06-08] MEDS ORDERED: Haloperidol Inj 5 MG/ML Ampul IV.PUSH PRN (14:19)
[2018-06-08] MEDS ORDERED: LORazepam 1 MG Tablet PO PRN (14:19)
--- NOTE | 2018-06-08 19:02 | P.CONGI ---
History of Present Illness Consult date: 06/08/18 Requesting physician: Gilberto Beltran Consult reason: Acute pancreatitis with nausea and emesis Chief complaint: Pancreatitis History of Present Illness: I am consulted on this 38 year old male with a history of alcohol abuse with recurrent pancreatitis, with a history of necrotizing pancreatitis resulting in a one month hospitalization in January 2017. He reports a history of HIV that is currently well controlled on antiviral agents. He admits to recurrent alcohol consumption. He presented with abdominal pain and a lipase of >2000. He notes fullness of his abdomen with increased tension and sharp aching pain radiating across the upper abdomen that is continuous but tender to palpation. The pain is reported as severe and he has been requesting his narcotic pain medication as soon as possible. He has tried some jello and clear liquids but developed nausea and had emesis. he also reports chronic diarrhea especially with fatty and greasy food. His CT scan is significant for a 3.4 cm pseudocyst and induration around the head of the pancreas. GENERAL: SKIN: Warm and dry. HEAD: Atraumatic. Normocephalic. EYES: Pupils equal and round. No scleral icterus. No injection or drainage. ENT: No nasal bleeding or discharge. Mucous membranes pink and moist. NECK: Trachea midline. No JVD. CARDIOVASCULAR: Regular rate and rhythm. RESPIRATORY: No accessory muscle use. Clear to auscultation. Breath sounds equal bilaterally. GASTROINTESTINAL: Abdomen tense, tender, distended. Hepatic and splenic margins not palpable. MUSCULOSKELETAL: Extremities without clubbing, cyanosis, or edema. No obvious deformities. NEUROLOGICAL: Awake and alert. No obvious cranial nerve deficits. Motor grossly within normal limits. Five out of 5 muscle strength in the arms and legs. Normal speech. PSYCHIATRIC: Appropriate mood and affect; insight and judgment normal. IMPRESSION Acute on chronic pancreatitis secondary to alcohol consumption. He has underlying pancreatic exocrine insufficiency. The nausea and emesis is secondary to the acute pancreatitis. RECOMMENDATION 1- NPO 2- IV hydration 3- pain management 4- Will consider endoscopic ultrasound 5- consider repeat CT scan if no improvement in lipase and abdominal distention. Abnormal Labs 06/07/18 06/07/18 06/07/18 04:44 04:44 04:50 RBC Hgb Hct Plt Count 132 L MPV 11.1 H Neut % (Auto) [place] % (Auto) Potassium Estimated GFR 68 L POC Glucose Random Glucose 152 H Lactic Acid 2.5 H Calcium AST 46 H Alkaline Phosphatase 130 H Lipase 2218 H Amorphous Sediment 06/07/18 06/07/18 06/07/18 05:00 11:18 16:29 RBC Hgb Hct Plt Count MPV Neut % (Auto) [place] % (Auto) Potassium Estimated GFR POC Glucose 146 H 144 H Random Glucose Lactic Acid Calcium AST Alkaline Phosphatase Lipase Amorphous Sediment Few H 06/07/18 06/07/18 06/08/18 17:19 21:30 07:25 RBC 3.83 L Hgb 11.8 L D Hct 35.0 L Plt Count 107 L MPV Neut % (Auto) 70.6 H [place] % (Auto) 9.2 H Potassium Estimated GFR POC Glucose 124 H 166 H Random Glucose Lactic Acid Calcium AST Alkaline Phosphatase Lipase Amorphous Sediment 06/08/18 06/08/18 06/08/18 07:25 07:25 07:48 RBC Hgb Hct Plt Count MPV Neut % (Auto) [place] % (Auto) Potassium 3.4 L Estimated GFR POC Glucose 149 H Random Glucose 160 H Lactic Acid Calcium 7.8 L D AST Alkaline Phosphatase 118 H Lipase 759 H Amorphous Sediment 06/08/18 11:07 RBC Hgb Hct Plt Count MPV Neut % (Auto) [place] % (Auto) Potassium Estimated GFR POC Glucose 123 H Random Glucose Lactic Acid Calcium AST Alkaline Phosphatase Lipase Amorphous Sediment Current Medications Acetaminophen (Tylenol) 650 mg PO Q4H PRN PRN Reason: Temp > 100.4 Al Hydroxide/Mg Hydroxide (Milk Of Alia Donaldq) 30 ml PO Q12H PRN PRN Reason: Mild Constipation Last Admin: 06/07/18 15:17 Dose: 30 ml Atorvastatin Calcium (Lipitor) 20 mg PO DAILY [facility] Bisacodyl (Dulcolax Supp) 10 mg RECTAL DAILY PRN PRN Reason: SEVERE CONSITIPATION Clonazepam (Klonopin) 1 mg PO BID [facility] Last Admin: 06/08/18 12:55 Dose: 1 mg Dextrose (D50w Vial) 50 ml IV.PUSH UNSCH PRN PRN Reason: PER HYPOGLYCEMIA PROTOCOL Dicyclomine HCl (Bentyl) 20 mg PO TID [facility] Last Admin: 06/08/18 17:02 Dose: Not Given Escitalopram Oxalate (Lexapro) 20 mg PO DAILY [facility] Flumazenil (Romazecon Inj) 0.2 mg IV.PUSH Q1M PRN PRN Reason: OVERSEDATION Furosemide (Lasix) 20 mg PO BID [facility] Gabapentin (Neurontin) 600 mg PO Q6H [facility] Last Admin: 06/08/18 17:01 Dose: Not Given Glucagon (Glucagon Inj) 1 mg OTHER PRN PRN PRN Reason: for Hypoglycemia Protocol Haloperidol Lactate (Haldol Inj) 1 mg IV.PUSH Q15M PRN PRN Reason: for severe agitation Hydromorphone HCl (Dilaudid Pf Inj) 1 mg IV.SIG Q4H PRN PRN Reason: PAIN SCALE 1 TO 10 Last Admin: 06/08/18 18:19 Dose: 1 mg Sodium Chloride (Ns Inj) 1,000 mls @ 100 mls/hr IV.CONT .Q10H [facility] Last Admin: 06/08/18 14:12 Dose: 200 mls/hr Insulin Aspart (Novolog Insulin Correctional Sugar Inj) 0 unit SQ ACHS [facility]; Protocol Last Admin: 06/08/18 17:01 Dose: Not Given Lactulose (Lactulose Liq) 30 ml PO DAILY PRN PRN Reason: SEVERE CONSITIPATION Lamotrigine (Lamictal) 300 mg PO DAILY [facility] Last Admin: 06/08/18 12:57 Dose: Not Given Lorazepam (Ativan) 1 mg PO Q4H PRN PRN Reason: for CIWA 8-10 Lorazepam (Ativan) 2 mg PO Q2H PRN PRN Reason: for CIWA 11-14 Lorazepam (Ativan Inj) 2 mg IV.PUSH Q2H PRN PRN Reason: for CIWA 11-14 Lorazepam (Ativan Inj) 2 mg IV.PUSH Q1H PRN PRN Reason: for CIWA 15-20 Lorazepam (Ativan Inj) 2 mg IV.PUSH Q15M PRN PRN Reason: for CIWA > 20 Lorazepam (Ativan Inj) 1 mg IV.PUSH Q4H PRN PRN Reason: for CIWA 8-10 Meloxicam (Mobic) 15 mg PO DAILY [facility] Mirtazapine (Remeron) 30 mg PO DAILY [facility] Last Admin: 06/08/18 12:57 Dose: Not Given Ondansetron HCl (Zofran Inj) 4 mg IV.PUSH Q6H PRN PRN Reason: NAUSEA OR VOMITING Last Admin: 06/08/18 18:20 Dose: 4 mg Pantoprazole Sodium (Protonix Inj) 40 mg IV.PUSH Q12H [facility] Last Admin: 06/08/18 18:40 Dose: 40 mg Pt Own - Biktarvy 1 each PO DAILY [facility] Pt Own - Rixulti 1 (Mg) 1 each PO DAILY [facility] Pt Own - Genvoya 1 each PO DAILY [facility] Pregabalin (Lyrica) 75 mg PO BID [facility] Propranolol HCl (Inderal) 10 mg PO TID [facility] Last Admin: 06/08/18 17:02 Dose: Not Given Quetiapine Fumarate (Seroquel) 300 mg PO HS [facility] Quetiapine Fumarate (Seroquel) 50 mg PO BID [facility] Sennosides (Senokot) 17.2 mg PO Q12H PRN PRN Reason: Moderate Constipation Sodium Chloride (Ns Flush) 2 ml IV.FLUSH BID [facility] Last Admin: 06/08/18 08:37 Dose: Not Given Sodium Chloride (Ns Flush) 2 ml IV.FLUSH PRN PRN PRN Reason: FLUSH AFTER USING IV ACCESS Tizanidine HCl (Zanaflex) 4 mg PO [facility] Abdomen/Pelvis CT 06/07/18 04:33 CONCLUSION: 1. Induration seen around the proximal duodenum and pancreatic head region. It is uncertain if this originates from the duodenum or the pancreatic head is related to peptic disease or pancreatitis. The patient does appear to stable pseudocyst anterior to the pancreatic body. 2. Hepatic steatosis. Chest X-Ray 06/07/18 04:33 CONCLUSION: Cardiomegaly. Prominence of interstitium which may represent pulmonary venous hypertension or mild edema versus underlying chronic interstitial disease. [facility] - History History Provided By: Patient - Medical History Medical History: Medical History (Last Reviewed 06/07/18 @ 10:23 by Ely Bhatia) Anxiety Bipolar 1 disorder Depression Diabetes mellitus HIV (human immunodeficiency virus infection) High cholesterol History of alcohol abuse Insomnia Pancreatitis Schizophrenia Tachycardia - Surgical History Surgical History: Surgical History (Last Reviewed 06/07/18 @ 10:23 by Ely Bhatia) History of appendectomy Hx of tracheostomy - Family History Family History: Family History (Last Updated 06/07/18 @ 10:23 by Ely Bhatia) Other Family history in first degree relatives is unremarkable - Tobacco History Second Hand Smoke Exposure: No Tobacco Use In Past 30 Days: Yes Smoking Status: Light tobacco smoker Tobacco Type: E-Cigarettes - Alcohol History How Often Do You Have a Drink Containing Alcohol: Monthly or less - Substance Use History Substance History: Past History - Substance Use Type Alcohol Status: Sustained Remission Route Used: By Mouth Reason for Use: Feels Good - Travel History Recent Travel in the [place] Within the Last 8 Weeks: No Recent Travel Out of the Country Within the Last 8 Weeks: No - Immunization History Tetanus Immunization: <5 Years Hx Influenza Vaccine This Season: Yes Medications and Allergies Active Medications: Active Medications Acetaminophen (Tylenol) 650 mg PO Q4H PRN PRN Reason: Temp > 100.4 Al Hydroxide/Mg Hydroxide (Milk Of Magnesia Liq) 30 ml PO Q12H PRN PRN Reason: Mild Constipation Last Admin: 06/07/18 15:17 Dose: 30 ml Atorvastatin Calcium (Lipitor) 20 mg PO DAILY [facility] Bisacodyl (Dulcolax Supp) 10 mg RECTAL DAILY PRN PRN Reason: SEVERE CONSITIPATION Clonazepam (Klonopin) 1 mg PO BID [facility] Last Admin: 06/08/18 12:55 Dose: 1 mg Dextrose (D50w Vial) 50 ml IV.PUSH UNSCH PRN PRN Reason: PER HYPOGLYCEMIA PROTOCOL Dicyclomine HCl (Bentyl) 20 mg PO TID [facility] Last Admin: 06/08/18 17:02 Dose: Not Given Escitalopram Oxalate (Lexapro) 20 mg PO DAILY [facility] Flumazenil (Romazecon Inj) 0.2 mg IV.PUSH Q1M PRN PRN Reason: OVERSEDATION Furosemide (Lasix) 20 mg PO BID [facility] Gabapentin (Neurontin) 600 mg PO Q6H [facility] Last Admin: 06/08/18 17:01 Dose: Not Given Glucagon (Glucagon Inj) 1 mg OTHER PRN PRN PRN Reason: for Hypoglycemia Protocol Haloperidol Lactate (Haldol Inj) 1 mg IV.PUSH Q15M PRN PRN Reason: for severe agitation Hydromorphone HCl (Dilaudid Pf Inj) 1 mg IV.SIG Q4H PRN PRN Reason: PAIN SCALE 1 TO 10 Last Admin: 06/08/18 18:19 Dose: 1 mg Sodium Chloride (Ns Inj) 1,000 mls @ 100 mls/hr IV.CONT .Q10H [facility] Last Admin: 06/08/18 14:12 Dose: 200 mls/hr Insulin Aspart (Novolog Insulin Correctional Sugar Inj) 0 unit SQ ACHS [facility]; Protocol Last Admin: 06/08/18 17:01 Dose: Not Given Lactulose (Lactulose Liq) 30 ml PO DAILY PRN PRN Reason: SEVERE CONSITIPATION Lamotrigine (Lamictal) 300 mg PO DAILY [facility] Last Admin: 06/08/18 12:57 Dose: Not Given Lorazepam (Ativan) 1 mg PO Q4H PRN PRN Reason: for CIWA 8-10 Lorazepam (Ativan) 2 mg PO Q2H PRN PRN Reason: for CIWA 11-14 Lorazepam (Ativan Inj) 2 mg IV.PUSH Q2H PRN PRN Reason: for CIWA 11-14 Lorazepam (Ativan Inj) 2 mg IV.PUSH Q1H PRN PRN Reason: for CIWA 15-20 Lorazepam (Ativan Inj) 2 mg IV.PUSH Q15M PRN PRN Reason: for CIWA > 20 Lorazepam (Ativan Inj) 1 mg IV.PUSH Q4H PRN PRN Reason: for CIWA 8-10 Meloxicam (Mobic) 15 mg PO DAILY [facility] Mirtazapine (Remeron) 30 mg PO DAILY [facility] Last Admin: 06/08/18 12:57 Dose: Not Given Ondansetron HCl (Zofran Inj) 4 mg IV.PUSH Q6H PRN PRN Reason: NAUSEA OR VOMITING Last Admin: 06/08/18 18:20 Dose: 4 mg Pantoprazole Sodium (Protonix Inj) 40 mg IV.PUSH Q12H [facility] Last Admin: 06/08/18 18:40 Dose: 40 mg Pt Own - Biktarvy 1 each PO DAILY [facility] Pt Own - Rixulti 1 (Mg) 1 each PO DAILY [facility] Pt Own - Genvoya 1 each PO DAILY [facility] Pregabalin (Lyrica) 75 mg PO BID [facility] Propranolol HCl (Inderal) 10 mg PO TID [facility] Last Admin: 06/08/18 17:02 Dose: Not Given Quetiapine Fumarate (Seroquel) 300 mg PO HS [facility] Quetiapine Fumarate (Seroquel) 50 mg PO BID [facility] Sennosides (Senokot) 17.2 mg PO Q12H PRN PRN Reason: Moderate Constipation Sodium Chloride (Ns Flush) 2 ml IV.FLUSH BID [facility] Last Admin: 06/08/18 08:37 Dose: Not Given Sodium Chloride (Ns Flush) 2 ml IV.FLUSH PRN PRN PRN Reason: FLUSH AFTER USING IV ACCESS Tizanidine HCl (Zanaflex) 4 mg PO [facility] Allergies Allergy/AdvReac Type Severity Reaction Status Date / Time naproxen Allergy Severe Vomiting Verified 06/07/18 04:28 penicillin G Allergy Severe Anaphylaxis Verified 06/07/18 04:28 Home Medications Medication Instructions Recorded Confirmed Type brexpiprazole [Rexulti] 1 mg PO DAILY 01/12/18 06/07/18 History ijckjms-zim-jyort-tenof alafen 1 tab PO DAILY 01/12/18 06/07/18 History [Genvoya] escitalopram oxalate 20 mg PO DAILY 01/12/18 06/07/18 History gabapentin 1 tab PO Q6HR 01/12/18 06/07/18 History lamotrigine 300 mg PO DAILY 01/12/18 06/07/18 History mirtazapine 30 mg PO DAILY 01/12/18 06/07/18 History pantoprazole 40 mg PO DAILY 01/12/18 06/07/18 History propranolol 10 mg PO TID 01/12/18 06/07/18 History quetiapine 50 mg PO BID 01/12/18 06/07/18 History quetiapine 300 mg PO HS 01/12/18 06/07/18 History rosuvastatin 10 mg PO DAILY 01/12/18 06/07/18 History sumatriptan succinate 50 mg PO Q2-4H PRN 01/12/18 06/07/18 History furosemide [Lasix] 20 mg PO BID 04/24/18 06/07/18 History insulin aspart U-100 [Novolog 1 sliding scale dose SUBCUT UD 04/24/18 06/07/18 History U-100 Insulin aspart] insulin detemir U-100 [Levemir 20 units SUBCUT HS 04/24/18 06/07/18 History U-100 Insulin] tramadol 50 mg PO BID 04/24/18 06/07/18 History qmysoxxii-eylwfdsf-cbslgiv ala 1 tab PO DAILY 06/07/18 06/07/18 History [Biktarvy] brexpiprazole [Rexulti] 1 mg PO DAILY 06/07/18 06/07/18 History clonazepam 1 mg PO BID 06/07/18 06/07/18 History insulin detemir U-100 [Levemir 28 unit SUBCUT QPM 06/07/18 06/07/18 History U-100 Insulin] meloxicam 15 mg PO DAILY 06/07/18 06/07/18 History pregabalin [Lyrica] 75 mg PO BID 06/07/18 06/07/18 History tizanidine 4 mg PO HS 06/07/18 06/07/18 History Exam Vital signs: Vital Signs 06/07/18 20:00 06/08/18 00:00 06/08/18 07:44 Temperature 98.7 F 98.0 F Pulse Rate 75 84 Respiratory Rate 17 18 17 Blood Pressure 133/76 130/70 Pulse Oximetry 93 L 96 06/08/18 08:00 06/08/18 12:00 06/08/18 14:41 Temperature 98.1 F 98 F Pulse Rate 69 69 Respiratory Rate 20 20 18 Blood Pressure 116/64 119/69 Pulse Oximetry 92 L 90 L 06/08/18 16:00 Temperature 97.7 F Pulse Rate 66 Respiratory Rate 20 Blood Pressure 119/84 Pulse Oximetry 92 L Intake & Output 06/07/18 06/08/18 06/08/18 18:59 06:59 18:59 Intake Total 2150 / 2150 1999 2800 / 2800 Output Total 150 / 150 1000 / 1000 Balance 1999 1800 / 1800 Intake: IV 1999 NS Inj 1,000 ML @ 100 mls/hr IV 1999 .CONT .Q10H [facility] Rx#:[id number] Oral 150 / 150 800 / 800 Output: Urine 150 / 150 1000 / 1000 Other: # Voids 1 # Emeses 1 Results - Labs CBC & Chem 7: 06/08/18 07:25 06/08/18 07:25 Labs: Laboratory Results - last 24 hr 06/07/18 06/08/18 06/08/18 21:30 07:25 07:25 CBC w Diff Auto diff final WBC 6.9 RBC 3.83 L Hgb 11.8 L D Hct 35.0 L MCV 91.6 MCH 30.7 MCHC 33.5 RDW 12.8 Plt Count 107 L MPV 10.2 Neut % (Auto) 70.6 H Lymph % (Auto) 18.8 [place] % (Auto) 9.2 H Eos % (Auto) 1.1 Baso % (Auto) 0.3 Neut # (Auto) 4.9 Lymph # (Auto) 1.3 [place] # (Auto) 0.6 Eos # (Auto) 0.1 Baso # (Auto) 0.0 WBC Differential . Differential Comment . Sodium 139 Potassium 3.4 L Chloride 105 Carbon Dioxide 28.6 Anion Gap 5 BUN 14 Creatinine 0.85 Estimated GFR Greater than 89 POC Glucose 166 H Random Glucose 160 H Calcium 7.8 L D Total Bilirubin 0.4 AST 29 ALT 42 Alkaline Phosphatase 118 H Total Protein 7.1 Albumin 3.4 Lipase 06/08/18 06/08/18 06/08/18 07:25 07:48 11:07 CBC w Diff WBC RBC Hgb Hct MCV MCH MCHC RDW Plt Count MPV Neut % (Auto) Lymph % (Auto) [place] % (Auto) Eos % (Auto) Baso % (Auto) Neut # (Auto) Lymph # (Auto) [place] # (Auto) Eos # (Auto) Baso # (Auto) WBC Differential Differential Comment Sodium Potassium Chloride Carbon Dioxide Anion Gap BUN Creatinine Estimated GFR POC Glucose 149 H 123 H Random Glucose Calcium Total Bilirubin AST ALT Alkaline Phosphatase Total Protein Albumin Lipase 759 H 06/08/18 16:19 CBC w Diff WBC RBC Hgb Hct MCV MCH MCHC RDW Plt Count MPV Neut % (Auto) Lymph % (Auto) [place] % (Auto) Eos % (Auto) Baso % (Auto) Neut # (Auto) Lymph # (Auto) [place] # (Auto) Eos # (Auto) Baso # (Auto) WBC Differential Differential Comment Sodium Potassium Chloride Carbon Dioxide Anion Gap BUN Creatinine Estimated GFR POC Glucose 104 Random Glucose Calcium Total Bilirubin AST ALT Alkaline Phosphatase Total Protein Albumin Lipase
[2018-06-08] MEDS: Pregabalin 75 MG Capsule PO SCH (21:24)
[2018-06-08] MEDS: QUEtiapine 25 MG Tablet PO SCH (21:24)
[2018-06-08] MEDS: Furosemide 20 MG Tablet PO SCH (21:24)
[2018-06-09] MEDS: Gabapentin 300 MG Capsule PO SCH ×3 (00:03→11:56)
[2018-06-09] MEDS: HYDROmorphone PF Inj 2 MG/ML Vial IV.SIG PRN ×3 (03:05→12:53)
[2018-06-09] MEDS: Pantoprazole Inj 40 MG Vial IV.PUSH SCH (06:21)
[2018-06-09] MEDS: Insulin NovoLOG Aspart Correctional Sugar Inj SQ SCH ×2 (07:36→11:56)
[2018-06-09] MEDS: Furosemide 20 MG Tablet PO SCH (08:28)
[2018-06-09] MEDS: Pregabalin 75 MG Capsule PO SCH (08:28)
[2018-06-09] MEDS: Propranolol 10 MG Tablet PO SCH ×2 (08:28→12:00)
[2018-06-09] MEDS: QUEtiapine 25 MG Tablet PO SCH (08:29)
[2018-06-09] MEDS: lamoTRIgine 100 MG Tablet PO SCH (08:29)
[2018-06-09] MEDS: clonazePAM 1 MG Tablet PO SCH (08:29)
[2018-06-09] MEDS: Sod Chloride 0.9% Inj 1,000 ML IV.CONT SCH (08:30)
[2018-06-09] MEDS: Mirtazapine 15 MG Tablet PO SCH (08:32)
[2018-06-09] MEDS ORDERED: Escitalopram 10 MG Tablet PO SCH (09:00)
[2018-06-09] MEDS ORDERED: GENVOYA PO SCH (09:00)
[2018-06-09] MEDS ORDERED: BREXPIPRAZOLE 1 MG PO SCH (09:00)
[2018-06-09] MEDS ORDERED: BIKTARVY PO SCH (09:00)
--- NOTE | 2018-06-09 10:48 | P.PNIM ---
Subjective Interval history: Follow-up acute pancreatitis, vomiting nausea vomiting. Patient seen and examined, lying in bed comfortably sleeping. In no apparent distress. No acute events overnight. Was able to tolerate p.o. intake including his home medications. Appreciate GI consult. Possible endoscopy. Vital signs stable. Afebrile. N.p.o. for now. Physical Exam Vital signs: Vital Signs 06/08/18 12:00 06/08/18 14:41 06/08/18 16:00 Temperature 98 F 97.7 F Pulse Rate 69 66 Respiratory Rate 20 18 20 Blood Pressure 119/69 119/84 Pulse Oximetry 90 L 92 L 06/08/18 20:00 06/09/18 00:00 06/09/18 08:00 Temperature 98.4 F 96.8 F L 98.8 F Pulse Rate 69 67 73 Respiratory Rate 18 18 18 Blood Pressure 122/68 93/55 L 126/79 Pulse Oximetry 95 95 96 Intake & Output 06/08/18 06/09/18 06/09/18 18:59 06:59 18:59 Intake Total 2800 / 2800 1300 / 1300 1000 / 1000 Output Total 1000 / 1000 750 / 750 Balance 1800 / 1800 550 / 550 1000 / 1000 Weight 98.4 kg Intake: IV 2000 / 2000 1000 / 1000 1000 / 1000 NS Inj 1,000 ML @ 100 mls/hr IV 2000 / 2000 1000 / 1000 1000 / 1000 .CONT .Q10H [facility] Rx#:[id number] Oral 800 / 800 300 / 300 Output: Urine 1000 / 1000 750 / 750 Other: # Emeses 1 Narrative: GENERAL: Well-developed, well-nourished patient in no apparent distress. SKIN: Warm and dry. No rash. HEAD: Normocephalic. Atraumatic. EYES: Pupils equal and round. No scleral icterus. No injection or drainage. ENT: No nasal bleeding or discharge. Mucous membranes pink and moist. NECK: Supple. Trachea midline. CARDIOVASCULAR: Regular rate and rhythm. S1, S2 noted. No murmur appreciated. RESPIRATORY: No accessory muscle use. Clear to auscultation. Breath sounds equal bilaterally. GASTROINTESTINAL: Abdomen soft, nondistended. Normoactive bowel sounds x4. No tenderness MUSCULOSKELETAL: No obvious deformities. Extremities without clubbing, cyanosis , or edema. NEUROLOGICAL: Awake and alert. No obvious cranial nerve deficits. Motor grossly within normal limits. 5/5 muscle strength in bilateral upper and lower extremities. Normal speech. PSYCHIATRIC: Appropriate mood and affect; insight and judgment normal. Results - Labs CBC & Chem 7: 06/08/18 07:25 06/08/18 07:25 Laboratory Results - last 24 hr 06/08/18 06/08/18 06/08/18 11:07 16:19 21:27 POC Glucose 123 H 104 100 Lipase 06/09/18 06/09/18 05:17 07:32 POC Glucose 108 Lipase 359 Assessment and Plan - Assessment (1) Pancreatitis Code(s): K85.90 - Acute pancreatitis without necrosis or infection, unspecified Status: Acute - Plan This is a 38-year-old male patient with Acute pancreatitis, improving. History of necrotizing pancreatitis -Patient presents with a 1 day history of abdominal pain, nausea and vomiting. -CT abdomen/pelvis reviewed showing pancreatitis and a stable pseudocyst of the anterior of the pancreatic body. -Lipase 2218. Improved. CBC and BMP reviewed, essentially unremarkable. -Patient placed on IV narcotics as needed. -GI consulted, appreciate input and recommendations. NPO for now. Possible endoscopy. -Continue hold home medications. -Ensure hydration, continue IV fluids. -Zofran as needed for nausea. -Will continue Protonix. Diabetes -ACCU check ACHS, sliding scale. Monitor blood sugar trends. Monitor for hypoglycemia. History of alcohol abuse -Encouraged cessation. Patient drinks 1 alcoholic drink a month per report. HIV -Patient states his HIV is undetectable. Follows outpatient. Stable. Hyperlipidemia, chronic -Continue statin. DVT prophylaxis: Ambulation. Discharge Planning: Await clinical improvement and further GI recs. (1) Pancreatitis Qualifiers: Chronicity: acute Pancreatitis type: alcohol induced Acute pancreatitis complication: unspecified Qualified Code(s): K85.20 - Alcohol induced acute pancreatitis without necrosis or infection
[2018-06-09] MEDS ORDERED: Meloxicam 15 MG Tablet PO SCH (12:00)
== END 2018-06-09 18:11 | disposition home or self-care (01) ==
LOC: PHED 04:22 → PHEDA 06:47 → PH3 07:42
PROVIDERS: ADMIT Hospitalist; ATTEND Hospitalist